=== PATIENT | female | born 1960 | race Caucasian/White ===

== ENCOUNTER 2016-12-03 09:02 | Emergency (ER) | payer MEDICARE, MEDICAID ==
[2016-12-03 09:10] VITALS: BP 111/65
--- NOTE | 2016-12-03 10:11 | UC ---
berna Alva Timothy, scribed for Mary Eason MD on 12/03/16 at 0957 . Skin Complaint HPI - HPI Summary HPI Summary: Cora Iqbal is a 56 yo female presenting to [facility] with erythematous, cicular, patchy rash on her legs and abdomen. Pt states first noted rash yesterday. Pt states approx 10 days ago was "being bit by something" when she was outside. Pt initially thought was a spider, but reports may have been a tick. PT staes since this time has had fatigue, nausea and exacerbation of her chronic migraine-type 3/10 PEREZ for the past 5 days. Pt denies abdominal pain but states in general does not feel well, has fatigue. Pt denies vision changes. No fevers, chills. No mylagia, arthralgia. No sick contact. She is concerned for lyme disease. Pt states she had lyme disease last summer, but her Sx today are much worse this time. She states she has been eating and drinking normally. Her MHx includes thyroid disease, migraine, schizophrenia, anxiety, substance abuse, necrotizing ulcerative gingivitis. Pt medication list reviewed this visit - History of Current Complaint Time Seen by Provider: 12/03/16 09:55 Stated Complaint: RASH Hx Obtained From: Patient Hx Last Menstrual Period: 02/15/15 Onset/Duration: Sudden Onset, Lasting Days, Still Present Skin Exposure Onset/Duration: Days Ago Timing: Constant Onset Severity: Moderate Current Severity: Moderate Pain Intensity: 3 Pain Scale Used: 0-10 Numeric Location: Diffuse Character: Redness Aggravating: Nothing Alleviating: Nothing Associated Signs & Symptoms: Positive: Abdominal Pain Related History: Insect Bite/Sting - Allergy/Home Medications Allergies/Adverse Reactions: Allergies Allergy/AdvReac Type Severity Reaction Status Date / Time Latex AdvReac GI Upset Verified 12/03/16 09:10 Review of Systems Constitutional: Negative Skin: Rash Eyes: Negative ENT: Negative Respiratory: Negative Cardiovascular: Negative Gastrointestinal: Abdominal Pain Genitourinary: Negative Motor: Negative Neurovascular: Negative Musculoskeletal: Negative Neurological: Headache Psychological: Negative All Other Systems Reviewed And Are Negative: Yes PMH/Surg Hx/FS Hx/Imm Hx Previously Healthy: Yes Endocrine History: Thyroid Disease Psychological History: Anxiety, Schizophrenia Other Psychological History: migraine Other History Of: Negative For: Anticoagulant Therapy - Surgical History Surgical History: Yes Surgery Procedure, Year, and Place: 2 fx nose. benign cyst left leg - Family History Known Family History: Positive: Hypertension, Other - thyroid disease Negative: Cardiac Disease, Diabetes - Social History Alcohol Use: Occasionally Substance Use Type: None Smoking Status (MU): Former Smoker Type: Cigarettes Have You Smoked in the Last Year: No When Did the Patient Quit Smoking/Using Tobacco: 10 YRS AGO - Immunization History Most Recent Influenza Vaccination: unknown Most Recent Tetanus Shot: unknown Most Recent Pneumonia Vaccination: unknown Physical Exam Triage Information Reviewed: Yes Appearance: Well-Appearing, No Pain Distress, Well-Nourished Vital Signs: Initial Vital Signs Temp 97.9 F 12/03/16 09:04 Pulse 106 12/03/16 09:04 Resp 18 12/03/16 09:04 BP 111/65 12/03/16 09:04 Pulse Ox 100 12/03/16 09:04 Vital Signs Reviewed: Yes Eye Exam: Normal Eyes: Positive: Conjunctiva Clear ENT Exam: Normal ENT: Positive: Hearing grossly normal, Pharynx normal, Nasal drainage, TMs normal Neck exam: Normal Neck: Positive: Supple, Nontender, No Lymphadenopathy Respiratory Exam: Normal Respiratory: Positive: Chest non-tender, Lungs clear, Normal breath sounds Cardiovascular Exam: Normal Cardiovascular: Positive: RRR, No Murmur, Pulses Normal Abdominal Exam: Normal Abdomen Description: Positive: Nontender, No Organomegaly, Soft Bowel Sounds: Positive: Present Musculoskeletal Exam: Normal Musculoskeletal: Positive: Strength Intact, ROM Intact Neurological: Positive: Alert, Muscle Tone Normal Psychological Exam: Normal Psychological: Positive: Normal Response To Family Skin Exam: Other - Pt with 3 areas of circular areas of erythema 3-4 cm in diameter with central clearing Not raised, slight warmth right mid calf - lateral aspect left lateral aspect knee Left mid femur anterior aspect. Pt with small puncture wound left, prox, posterior calf - no erythema, no fluctuance, no drainage, no induration Course/Dx - Course Course Of Treatment: Cora Iqbal is a 56 yo female presenting to [facility] with 2 days developing rash, 3/10 PEREZ , fatigue for the past week after being bitten by an unknown insect 1.5 weeks ago. Pt with 3 discrete, circular target lesions to LE. Pt non-toxic appearing and appropriate. will draw lyme. start Doxy. Recommend referral to Dr. Randolph. PCP f/u. return precautions discussed. Pt comfortable and in agreement with plan - Differential Diagnoses - Skin Complaint Differential Diagnoses: Tick Born Illness - Diagnoses Provider Diagnoses: rash. likely lyme Discharge - Discharge Plan Condition: Stable Disposition: HOME Prescriptions: DOXYcycline CAP(*) [DOXYcycline 100MG CAP(*)] 100 mg PO BID #20 cap Patient Education Materials: Lyme Disease (ED), Tick Bite (ED) Referrals: Won HERNANDEZ,Chris Ziegler [Medical Doctor] - 2 Days Real Huston MD [Primary Care Provider] - 2 Days Additional Instructions: The doctor that evaluated you today is concerned that you have Lyme's Disease. You have been prescribed doxycycline - medication used to treat Lyme's disease You have had blood drawn today to test for Lyme It is recommended you contact your doctor, Dr. Huston, and Dr. Randolph ( infectious disease) for follow-up and further treatment. Okay to take Tylenol as needed for discomfort. Okay to take other medications as previously prescribed. Return to urgent care or the emergency department with any questions or concerns including vomiting, fever, or vision problems, or any other concerns. The documentation as recorded by the berna gomez Timothy accurately reflects the service I personally performed and the decisions made by me, Mary Eason MD.
== END 2016-12-03 10:23 | disposition home or self-care (01) ==
LOC: UCEAST 09:02
DX: Z87.891 Personal history of nicotine dependence (principal); A69.20 Lyme disease, unspecified
CPT/HCPCS: 86617; 86618; 99212; G0463

== ENCOUNTER 2016-12-03 18:09 | Emergency (ER) | payer MEDICARE, MEDICAID ==
[2016-12-03 18:16] VITALS: BP 108/85
[2016-12-03] MEDS ORDERED: Ketorolac INJ* 30 MG/ML 1 ML VIAL IV ONE (19:58)
[2016-12-03] MEDS ORDERED: Ondansetron INJ* 2 MG/ML VIAL IV ONE (19:58)
[2016-12-03] MEDS ORDERED: NS 0.9% 1000 ML* 1,000 ML IV ONE (19:58)
--- NOTE | 2016-12-03 20:51 | RAD ---
Indication: Fever. Single frontal view of the chest performed at 2007 hours was reviewed. Comparison is made with previous exam dated February 03, 2006. No mediastinal shift is noted. Heart is of normal size and configuration. Lung caputo appear clear. IMPRESSION: NO ACTIVE CARDIOPULMONARY DISEASE IS NOTED.
[2016-12-03 21:45] LABS: Hematocrit 34 % (35-47); Hemoglobin 11.6 g/dl (12.0-16.0); Mean Corpuscular HGB Conc 34 g/dl (31-36); Mean Corpuscular Hemoglobin 29 pg (27-31); Mean Corpuscular Volume 86 fL (80-97); Mean Platelet Volume 8 um3 (7.4-10.4); Red Blood Count 3.97 10^6/ul (4.0-5.4); Red Cell Distribution Width 13 % (10.5-15); White Blood Count 9.4 10^3/ul (3.5-10.8)
[2016-12-03 21:56] LABS: Albumin 3.4 g/dL (3.2-5.2); BUN/Creatinine Ratio 7.2 (8-20); C Reactive Protein 53.75 mg/L (< 5.00); Calcium 8.8 mg/dL (8.6-10.3); EGFR African American 91.8 (>60); EGFR Non-African American 71.4 (>60); Globulin 3.4 g/dL (2-4); Potassium 3.5 mmol/L (3.5-5.0); Total Bilirubin 0.4 mg/dL (0.2-1.0); Total Protein 6.8 g/dL (6.4-8.9)
[2016-12-03 21:57] LABS: Troponin I 0.01 ng/mL (<0.04)
[2016-12-03] MEDS ORDERED: HYDROcodone/ACETAMIN 5-325 MG* 1 TAB PO ONE (22:30)
--- NOTE | 2016-12-03 22:30 | ED ---
Kathy Alva Auryana, scribed for Isela Abraham MD on 12/03/16 at 1910 . Headache - HPI Summary HPI Summary: 56 year old female present with fever (100.8) starting 1 day ago. Patient reports migraine (lasting days - now down to a small PEREZ), arthralgia, feeling "stingy feeling like zaps" underneath skin, and a pink rash with a ring. She believes she may have been bitten by a tick 1 week ago. She reports that her last episode of lyme disease was not like this. PMHx is significant for DDD, migraines, thyroid issues, Lyme disease (2016) and mental health issues. FHx is significant for migraines. SHx is significant for alcohol use but denies tobacco - History Of Current Complaint Chief Complaint: EDHeadache Stated Complaint: TICK BITE,RASH,FEVER/SENT FROM [facility] Time Seen by Provider: 12/03/16 19:02 Hx Obtained From: Patient Hx Last Menstrual Period: 02/15/15 Onset/Duration: Gradual Onset, Started days ago, Still Present Initially Headache Was: Severe Currently Pain Is: Moderate Timing: Constant Location of Headache: Diffuse Associated Signs And Symptoms: Fever, Other (Noted In Comments) - "stinging like zaps", arthralgia, rash Related History: Similar Episode/DX As: - SEE HPI - Allergies/Home Medications Allergies/Adverse Reactions: Allergies Allergy/AdvReac Type Severity Reaction Status Date / Time Latex AdvReac GI Upset Verified 12/03/16 09:10 PMH/Surg Hx/FS Hx/Imm Hx Endocrine/Hematology History: Reports: Hx Thyroid Disease Denies: Hx Anticoagulant Therapy, Hx Blood Disorders, Hx Blood Transfusions, Hx Bone Marrow Disease, Hx Diabetes, Hx Systemic Lupus Erythematosus, Hx Sickle Cell Disease, Hx Anemia, Hx Unexplained Bleeding, Other Endocrine/Hematological Disorders Cardiovascular History: Denies: Hx Hypertension, Hx Pacemaker/ICD Respiratory History: Denies: Hx Asthma, Hx Chronic Obstructive Pulmonary Disease (COPD) GI History: Denies: Hx Ulcer Sensory History: Reports: Hx Contacts or Glasses Denies: Hx Cataracts, Hx Eye Injury, Hx Eye Prosthesis, Hx Glaucoma, Hx Legally Blind, Hx Macular Degeneration, Hx Vision Problem, Hx Deafness, Hx Hearing Aid, Hx Hearing Problem, Other Sensory Impairments Opthamlomology History: Reports: Hx Contacts or Glasses Denies: Hx Cataracts, Hx Eye Injury, Hx Eye Prosthesis, Hx Glaucoma, Hx Legally Blind, Hx Macular Degeneration, Hx Vision Problem, Other Sensory Impairments Neurological History: Reports: Hx Migraine Denies: Hx Dementia, Hx Developmental Delay, Hx Headaches, Hx Nerve Disease, Hx Seizures, Hx Spinal Cord Injury, Hx Transient Ischemic Attacks (TIA), Other Neuro Impairments/Disorders Psychiatric History: Reports: Hx Anxiety, Hx Inpatient Treatment - Not in 11 years, Hx Community Mental Health Tx - [place] therapist and vol[place] [facility] [place], Hx Schizophrenia, Hx Substance Abuse - Recent episodes of excessive drinking Denies: Hx Attention Deficit Hyperactivity Disorder, Hx Eating Disorder, Hx Depression, Hx Panic Disorder, Hx Post Traumatic Stress Disorder, Hx Bipolar Disorder, Hx Suicide Attempt, Hx of Violent Episodes Against Others, Other Psychiatric Issues/Disorders - Cancer History Hx Chemotherapy: No Hx Radiation Therapy: No - Surgical History Surgery Procedure, Year, and Place: 2 fx nose. benign cyst left leg Infectious Disease History: No Infectious Disease History: Denies: Hx Hepatitis, Hx Human Immunodeficiency Virus (HIV), Hx of Known/ Suspected MRSA, Hx Shingles, Hx Tuberculosis, Hx Known/Suspected VRE, Hx Known/ Suspected VRSA, History Other Infectious Disease, Traveled Outside the [place] in Last 30 Days - Family History Known Family History: Positive: Unknown, Hypertension, Other - thyroid disease Negative: Cardiac Disease, Diabetes - Social History Occupation: Disabled Lives: Alone - WITH FEMALE FRIEND Alcohol Use: Occasionally Hx Substance Use: No Substance Use Type: Reports: None Smoking Status (MU): Former Smoker Type: Cigarettes Have You Smoked in the Last Year: No Review of Systems Positive: Fever Eyes: Negative ENT: Negative Cardiovascular: Negative Respiratory: Negative Gastrointestinal: Negative Genitourinary: Negative Positive: Arthralgia Positive: Rash Neurological: Other - "stinging like zaps" Positive: Headache Psychological: Normal All Other Systems Reviewed And Are Negative: Yes Physical Exam - Summary Physical Exam Summary: General: Well appearing, no pain distress Skin: Warm, Skin Color Reflects Adequate Perfusion, Dry. Blanching erythematus like plaques - 1 on leg and 2 on trunk - patches that don't look like cellulitis. No true target lesions. Eyes: EOMI, MISA ENT: Pharynx normal, TMs normal Neck: Supple, nontender Respiratory: CTA, breath sounds present, no rhonchi, no wheezes, no rales Cardiovascular: RRR, no murmur, no rub, no gallop Abdomen: Soft, nontender, Non-distended, no guarding, no rebound Bowel: Present Musculoskeletal: CASE, No edema Neuro: Sensory/motor intact, A&Ox3, CN intact 2-12 Psych: Affect/mood appropriate Triage Information Reviewed: Yes Vital Signs On Initial Exam: Initial Vitals Temp Pulse Resp BP Pulse Ox 98.8 F 110 20 108/85 98 12/03/16 18:14 12/03/16 18:14 12/03/16 18:14 12/03/16 18:14 12/03/16 18:14 Vital Signs Reviewed: Yes Diagnostics - Vital Signs Vital Signs Temp Pulse Resp BP Pulse Ox 12/03/16 18:14 98.8 F 110 20 108/85 98 - Laboratory Lab Results: Lab Results 12/03/16 12/03/16 12/03/16 Range/Units 21:30 21:30 21:30 WBC 9.4 (3.5-10.8) 10^3/ul RBC 3.97 L (4.0-5.4) 10^6/ul Hgb 11.6 L (12.0-16.0) g/dl Hct 34 L (35-47) % MCV 86 (80-97) fL MCH 29 (27-31) pg MCHC 34 (31-36) g/dl RDW 13 (10.5-15) % Plt Count 227 (150-450) 10^3/ul MPV 8 (7.4-10.4) um3 Neut % (Auto) 88.8 H (38-83) % Lymph % (Auto) 6.0 L (25-47) % Grainger % (Auto) 4.0 (1-9) % Eos % (Auto) 0.6 (0-6) % Baso % (Auto) 0.6 (0-2) % Absolute Neuts (auto) 8.3 H (1.5-7.7) 10^3/ul Absolute Lymphs (auto) 0.6 L (1.0-4.8) 10^3/ul Absolute Monos (auto) 0.4 (0-0.8) 10^3/ul Absolute Eos (auto) 0.1 (0-0.6) 10^3/ul Absolute Basos (auto) 0.1 (0-0.2) 10^3/ul Absolute Nucleated RBC 0 10^3/ul Nucleated RBC % 0 INR (Anticoag Therapy) 0.91 (0.89-1.11) Sodium 136 (133-145) mmol/L Potassium 3.5 (3.5-5.0) mmol/L Chloride 103 (101-111) mmol/L Carbon Dioxide 27 (22-32) mmol/L Anion Gap 6 (2-11) mmol/L BUN 6 (6-24) mg/dL Creatinine 0.83 (0.51-0.95) mg/dL Est GFR ( Amer) 91.8 (>60) Est GFR (Non-Af Amer) 71.4 (>60) BUN/Creatinine Ratio 7.2 L (8-20) Glucose 170 H (70-100) mg/dL Lactic Acid (0.5-2.0) mmol/L Calcium 8.8 (8.6-10.3) mg/dL Total Bilirubin 0.40 (0.2-1.0) mg/dL AST 102 H (13-39) U/L ALT 148 H (7-52) U/L Alkaline Phosphatase 139 H (34-104) U/L Troponin I 0.01 (<0.04) ng/mL C-Reactive Protein 53.75 H (< 5.00) mg/L Total Protein 6.8 (6.4-8.9) g/dL Albumin 3.4 (3.2-5.2) g/dL Globulin 3.4 (2-4) g/dL Albumin/Globulin Ratio 1.0 (1-3) 12/03/16 Range/Units 21:30 WBC (3.5-10.8) 10^3/ul RBC (4.0-5.4) 10^6/ul Hgb (12.0-16.0) g/dl Hct (35-47) % MCV (80-97) fL MCH (27-31) pg MCHC (31-36) g/dl RDW (10.5-15) % Plt Count (150-450) 10^3/ul MPV (7.4-10.4) um3 Neut % (Auto) (38-83) % Lymph % (Auto) (25-47) % Grainger % (Auto) (1-9) % Eos % (Auto) (0-6) % Baso % (Auto) (0-2) % Absolute Neuts (auto) (1.5-7.7) 10^3/ul Absolute Lymphs (auto) (1.0-4.8) 10^3/ul Absolute Monos (auto) (0-0.8) 10^3/ul Absolute Eos (auto) (0-0.6) 10^3/ul Absolute Basos (auto) (0-0.2) 10^3/ul Absolute Nucleated RBC 10^3/ul Nucleated RBC % INR (Anticoag Therapy) (0.89-1.11) Sodium (133-145) mmol/L Potassium (3.5-5.0) mmol/L Chloride (101-111) mmol/L Carbon Dioxide (22-32) mmol/L Anion Gap (2-11) mmol/L BUN (6-24) mg/dL Creatinine (0.51-0.95) mg/dL Est GFR ( Amer) (>60) Est GFR (Non-Af Amer) (>60) BUN/Creatinine Ratio (8-20) Glucose (70-100) mg/dL Lactic Acid 0.7 (0.5-2.0) mmol/L Calcium (8.6-10.3) mg/dL Total Bilirubin (0.2-1.0) mg/dL AST (13-39) U/L ALT (7-52) U/L Alkaline Phosphatase (34-104) U/L Troponin I (<0.04) ng/mL C-Reactive Protein (< 5.00) mg/L Total Protein (6.4-8.9) g/dL Albumin (3.2-5.2) g/dL Globulin (2-4) g/dL Albumin/Globulin Ratio (1-3) Result Diagrams: 12/03/16 21:30 12/03/16 21:30 Lab Statement: Any lab studies that have been ordered have been reviewed, and results considered in the medical decision making process. - Radiology CXR Xray Interpretation: No Acute Changes Radiology Interpretation Completed By: Radiologist Headache Course/Dx - Course Course Of Treatment: 56 yo female with target lesions seen earlier today by Dr. Eason with dx of lyme back today with body aches her labs are remarkable only for liver enzyme elevation that appears to be new she is well appearing, a hepatitis panel has been added on. Pt is safe for discharge. - Diagnoses Provider Diagnoses: Lyme disease, Liver enzyme elevation Discharge - Discharge Plan Condition: Stable Disposition: HOME The documentation as recorded by the Kathy gomez Auryana accurately reflects the service I personally performed and the decisions made by me, sIela Abraham MD.
== END 2016-12-03 22:47 | disposition home or self-care (01) ==
LOC: ED 18:09
DX: A69.20 Lyme disease, unspecified (principal); R94.5 Abnormal results of liver function studies; Z87.891 Personal history of nicotine dependence
CPT/HCPCS: 36415; 71010; 80053; 80074; 83605; 84484; 85025; 85610; 86140; 87040; 96360; 96374; 96375; 99282; J1885; J2405

== ENCOUNTER 2017-07-08 10:52 | Day surgery (SDC) | payer MEDICARE, MEDICAID ==
[~2017-07-08 10:52] MED LIST: Acetaminophen TAB* 325 MG PO PRN; Buffered Lidocaine 0.9% SYRIN* 5 ML/SYR SYRINGE INTRADERM ONE
[2017-07-08] MEDS ORDERED: Neomycin/Polymy/Dex OPHTH.OIN* 3.5 GM ONE (11:14)
[2017-07-08] MEDS ORDERED: Lidocaine 1% MPF* 2 ML VIAL ONE (11:14)
[2017-07-08] MEDS ORDERED: Tropicamide 1% OPTH.SOL* BTL ONE (11:14)
[2017-07-08] MEDS ORDERED: Phenylephrine 2.5% OPTH.SOL* 2 ML BTL ONE (11:14)
[2017-07-08] MEDS ORDERED: Cyclopentolate 1% OPTH.SOL* 2 ML BTL ONE (11:14)
[2017-07-08] MEDS ORDERED: Ketorolac 0.5% OPHTH (NF) 0.5 % 5 ML BTL ONE (11:14)
[2017-07-08] MEDS ORDERED: Tetracaine 0.5% OPTH.SOL 4 ML* 1 DROP BTL ONE (11:14)
[2017-07-08] MEDS ORDERED: Midazolam* 1 MG/ML 2 ML VIAL (2 MG) ONE (11:29)
[2017-07-08] MEDS ORDERED: fentaNYL* 50 MCG/ML 2 ML VIAL (100 MCG VIAL) ONE (11:29)
[2017-07-08 12:55] VITALS: BP 97/60
--- NOTE | 2017-07-08 23:33 | OP ---
DATE OF OPERATION: 07/08/17 - [facility] DATE OF : 62 SURGEON: Dr. Heraclio Geiger. RUG RENOVATOR: None. ANESTHESIA: Topical with intravenous sedation. PRE-OP DIAGNOSIS: Cataract, right eye. POST-OP DIAGNOSIS: Cataract, right eye. OPERATIVE PROCEDURE: Phacoemulsification and cataract extraction with posterior chamber Toric intraocular lens implant, right eye. COMPLICATIONS: None. BLOOD LOSS: None. DESCRIPTION OF PROCEDURE: The patient was seen preoperatively in the holding area where she was placed in an upright position. A eddie was made at the 6 o' clock position of the limbus of the right eye. The patient was subsequently brought to the operating room and received a small amount of intravenous sedation and a drop of Tetracaine in the right eye. The patient was prepped and draped in the usual sterile fashion for ophthalmic surgery and attention was directed to the right eye where a speculum was placed. A paracentesis was created at the 11 o'clock position and 0.1 cc of 1% preservative-free Lidocaine was injected into the anterior chamber followed by DisCoVisc. The eye was digitally stabilized while a 2.75 mm keratome was used to create a triplanar clear corneal incision at the 9 o'clock position. A continuous curvilinear capsulorrhexis was created with the cystotome and Utrata forceps. BSS on a cannula was used to hydrodissect the lens from the capsule. Phacoemulsification was performed in a [id number] technique to create 4 fragments, which were removed. Residual cortical material was removed with irrigation and aspiration. Healon was used to inflate the capsular bag. A Nathan marker and marking pen were used to eddie the 13-degree access at the limbus. An SN6AT3 21.5 Diopter lens was folded and inserted into the capsular bag. It was dialed to the appropriate axial alignment with the Sinskey hook. The Sinskey hook remained in the eye through the paracentesis to stabilize the lens while irrigation and aspiration was performed to remove viscoelastic from the eye. The Sinskey hook was removed. BSS on a cannula was used to hydrate the corneal stroma and seal the wound. At the end of the case, the pupil was round. The lens was centered stable and axially aligned. The eye pressure appeared normal and the wound was water tight. The speculum was removed and topical Maxitrol ointment was placed on the surface of the eye. Eye was closed, patched, and shielded and the patient was discharged to the recovery room in stable condition with postop instructions and followup appointment given. [id number]/[facility] #: [id number] MTDD
== END 2017-07-08 13:08 | disposition home or self-care (01) ==
LOC: OREAST 10:52
PROVIDERS: ATTEND Ophthalmology
DX: H25.041 Posterior subcapsular polar age-related cataract, right eye (principal); E03.9 Hypothyroidism, unspecified; F20.89 Other schizophrenia; K21.9 Gastro-esophageal reflux disease without esophagitis; Z87.891 Personal history of nicotine dependence
CPT/HCPCS: A9270-GY; J2250; J3010; V2787

== ENCOUNTER 2017-07-15 10:23 | Day surgery (SDC) | payer MEDICARE, MEDICAID ==
[~2017-07-15 10:23] MED LIST changes: -Buffered Lidocaine 0.9% SYRIN* 5 ML/SYR SYRINGE INTRADERM ONE; +Cyclopentolate 1% OPTH.SOL* 2 ML BTL ONE; +Ketorolac 0.5% OPHTH (NF) 0.5 % 5 ML BTL ONE; +Lidocaine 1% MPF* 2 ML VIAL ONE; +Neomycin/Polymy/Dex OPHTH.OIN* 3.5 GM ONE; +Phenylephrine 2.5% OPTH.SOL* 2 ML BTL ONE; +Tetracaine 0.5% OPTH.SOL 4 ML* 1 DROP BTL ONE; +Tropicamide 1% OPTH.SOL* BTL ONE
[2017-07-15] MEDS ORDERED: Phenylephrine 2.5% OPTH.SOL* 2 ML BTL ONE (12:19)
[2017-07-15] MEDS ORDERED: Neomycin/Polymy/Dex OPHTH.OIN* 3.5 GM ONE (12:19)
[2017-07-15] MEDS ORDERED: Lidocaine 1% MPF* 2 ML VIAL ONE (12:19)
[2017-07-15] MEDS ORDERED: Tropicamide 1% OPTH.SOL* BTL ONE (12:19)
[2017-07-15] MEDS ORDERED: Tetracaine 0.5% OPTH.SOL 4 ML* 1 DROP BTL ONE (12:19)
[2017-07-15] MEDS ORDERED: Cyclopentolate 1% OPTH.SOL* 2 ML BTL ONE (12:19)
[2017-07-15] MEDS ORDERED: Ketorolac 0.5% OPHTH (NF) 0.5 % 5 ML BTL ONE (12:19)
[2017-07-15] MEDS ORDERED: fentaNYL* 50 MCG/ML 2 ML VIAL (100 MCG VIAL) ONE (12:23)
[2017-07-15] MEDS ORDERED: Midazolam* 1 MG/ML 2 ML VIAL (2 MG) ONE (12:24)
[2017-07-15 13:37] VITALS: BP 103/92
--- NOTE | 2017-07-16 12:39 | OP ---
DATE OF OPERATION: 07/15/17 - [facility] DATE OF : 62 SURGEON: Heraclio Geiger MD PRE-OP DIAGNOSIS: Cataract with astigmatism, left eye. POST-OP DIAGNOSIS: Cataract with astigmatism, left eye. OPERATIVE PROCEDURE: Phacoemulsification, cataract extraction with posterior chamber intraocular lens implant, left eye (toric lens). DESCRIPTION OF PROCEDURE: The patient was seen preoperatively in the holding area and she was placed in an upright position. A eddie was made at the 6 o' clock position on the limbus of the left eye with a marking pen. The patient was subsequently brought to the operating room and given a small amount of intravenous sedation. A drop of tetracaine was given to the left eye. She was prepped and draped in the usual sterile fashion for ophthalmic surgery and attention was directed to the left eye where a speculum was placed. A paracentesis was created at the 5 o'clock position. 0.1 cc of 1% preservative- free lidocaine was injected into the anterior chamber followed by DisCoVisc. The eye was digitally stabilized while a 2.75 mm keratome was used to create a triplanar clear corneal incision at the 3 o'clock position. A continuous curvilinear capsulorrhexis was created with a cystotome and Utrata forceps. BSS on a cannula was used to hydrodissect the lens from the capsule. Phacoemulsification was performed in a [id number] technique to create 4 fragments which were removed. Residual cortical material was removed with irrigation and aspiration. Healon was used to inflate the capsular bag. A Nathan marker and marking pen were used to eddie the 176 degree axis. An SN6AT4 20.0 Diopter lens was folded and inserted into the capsular bag. It was dialed to the appropriate axial alignment with a Sinskey hook. The lens was held in position using the Sinskey hook through the paracentesis while irrigation and aspiration was performed to remove viscoelastic from the eye. The Sinskey hook was removed. BSS on a cannula were used to hydrate the corneal stroma and seal the wound. At the end of the case, the pupil was round. The lens was centered , stable and axillary aligned. The eye pressure appeared normal and the wound was water tight. The speculum was removed and topical Maxitrol ointment was placed on the surface of the eye. The eye was closed, patched, and shielded, and the patient was sent to recovery room in stable condition. [id number]/[facility] #: [id number] NICK
== END 2017-07-15 13:51 | disposition home or self-care (01) ==
LOC: OREAST 10:23
PROVIDERS: ATTEND Ophthalmology
DX: H25.12 Age-related nuclear cataract, left eye (principal); H52.202 Unspecified astigmatism, left eye; I10 Essential (primary) hypertension; Z87.891 Personal history of nicotine dependence; E03.9 Hypothyroidism, unspecified; F41.8 Other specified anxiety disorders; D64.9 Anemia, unspecified; F20.9 Schizophrenia, unspecified
CPT/HCPCS: A9270-GY; J2250; J3010; V2787

== ENCOUNTER 2017-11-23 12:51 | Emergency (ER) | payer MEDICARE, MEDICAID ==
--- OUTSIDE RECORDS SUMMARY | 2017-11-23 13:00 | XMS REPORT ---
:1960 External Reference #:[id number] Author Organization [facility] Address [address] [place] [address] Phone [phone] Care Team Providers Name Role Phone Real Huston MD Primary Care Physician Unavailable Payers Type Date Identification Numbers Payment Provider Subscriber Medicare Primary Effective: Policy Number: Medicare Cora Iqbal 1991 [id number] PayID: [id number] [address] [place] [address] Medigap Part B Policy Number: [id number] Medicaid Cora Iqbal PayID: [id number] [address] [place] [address] Problems Date Description Provider Status Onset: 05/31/2016 Chronic back pain Real Huston M.D.,FACP Active Onset: 05/31/2016 Menstrual migraine Real Huston M.D.,FACP Active Onset: 05/31/2016 Hypothyroidism Real Huston M.D.,FACP Active Onset: 05/31/2016 Simple schizophrenia Real Huston M.D.,FACP Active Note: w/ auditory hallucination Onset: 04/18/2017 Gastroesophageal reflux disease Real Huston M.D., FACP Active Family History Date Family Member(s) Problem(s) Comments Mother Colon Cancer [facility], living age 87 Children 3 2 alive Siblings 3 Social History Type Date Description Comments Marital Status Single Lives With Alone 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 Cigarette Use Never Smoked Cigarettes ETOH Use 06/05/2016 Consumes 3 glasses of wine per day Smoking Patient has never smoked Recreational Drug Use Denies Drug Use Daily Caffeine Consumes on average 4 cups of regular coffee per day Currently Active Patient is currently not sexually active General Hx Text 3 kids Allergies, Adverse Reactions, Alerts Date Description Reaction Status Severity Comments 08/24/2013 NKDA active Medications Medication Date Status Form Strength Qnty SIG Indications Ordering Provider Climara Pro 11/12/ Active Patches 0.045-0.0 4unit topical Real 2017 Weekly 15mg/Day s weekly Karlie Huston M.D.,FACP Senokot 04/18/ Active Tablets 8.6mg 120ta Real 2016 bs Karlie Huston M.D.,FACP Hydrocodone-Aceta 04/18/ Active Tablets 5-325mg 45tab 1 by Real minophen 2016 s mouth Karlie Huston, every 4-6 M.D.,FACP hours prn. Tab-A-Adryan 02/24/ Active Tablets 90tab take 1 Real Escobedo s tablet by Karlie Huston, mouth M.D.,FACP once daily Multivitamin 11/21/ Active Tablets 90tab 1 by Real Adult 2017 s mouth Karlie Huston, every day M.D.,FACP Vitamin B-2 10/16/ Active Tablets 100mg 4 tab Real Escobedo daily Karlie Huston M.D.,FACP Pantoprazole 07/05/ Active Tablets DR 20mg 30tab 1 by Real Sodium 2017 s mouth Karlie Huston, every day M.D.,FACP for 2 weeks then prn Verapamil HCL ER 07/05/ Active Caps ER 100mg 30cap 1 by Angela 2016 24HR s mouth Huertas, every LOAN ASSISTANT night at bedtime Cyclobenzaprine 06/24/ Active Tablets 10mg 90tab take 1 Angela HCL 2016 s tablet Huertas, three LOAN ASSISTANT times a day as needed Levothyroxine 06/20/ Active Tablets 100mcg 30tab 1 by Real Sodium 2017 s mouth Karlie Huston, every day M.D.,FACP Fluticasone 05/31/ Active Suspension 50mcg/Act 9.900 2 sprays [place] Jane Propionate 2016 ml each Karlie Huston, nostril M.D.,FACP daily as needed Tramadol HCL 12/30/ Active Tablets 50mg 100ta 1-2 Real 2015 bs tablets Karlie Huston, every 6 M.D.,FACP hours as needed Hydroxyzine HCL 05/31/ Active Tablets 25mg 45tab 2 tab at Real 2015 s bedtime Karlie Huston M.D.,FACP Gabapentin 05/31/ Active Tablets 800mg 120ta 1 by Real 2015 bs mouth two Karlie Huston, times a M.D.,FACP day Magnesium Oxide 05/31/ Active Capsules 400mg 30cap by mouth Real 2015 s every day Karlie Huston M.D.,FACP Zolmitriptan 05/31/ Active Tablets 5mg 9tabs 1 by Angela 2015 Dispers mouth Huertas, every 2 LOAN ASSISTANT hours mdd2 as needed migraine( 9 tablets a month) mdd 2 Ibuprofen 05/31/ Active Tablets 800mg 45tab 1 by Real 2015 s mouth Karlie Huston, q6-8 M.D.,FACP hours as needed cramps Vraylar / Active Capsules 4.5mg 1 po qd Unknown 0000 Butalbital/Acetam / Active Capsules 50-325-40 30cap 1-2 caps John Villanueva inophen/Caffeine 0000 mg s by mouth Karlie Huston, every 4 M.D.,FACP hours as needed for migraine, max 2 days/wk, 2 wks a month Alprazolam / Active Tablets 0.25mg one by Unknown 0000 mouth up to three times daily as needed for anxiety Vitamin B-12 / Active Tablets 500mcg 1 by Unknown 0000 mouth every day Doxycycline 03/25/ Hx Tablets 100mg 42tab 1 by Real Peres 2016 - s mouth Karlie Huston, 04/15/ twice a M.D.,FACP 2016 day for 3 wks Doxycycline 03/04/ Hx Tablets 100mg 2tabs 2 tabs by Real Peres 2017 - mouth Karlie Huston, 03/06/ M.D.,FACP 2017 Doxycycline 12/03/ Hx Capsules 100mg [facility]cap [facility] Ordering 12/16/ twice Provider 2017 daily for 10 days. Lidoderm 07/20/ Hx Patches 5% 30uni apply one Tyler 2017 - ts patch 12 Marian, 11/17/ hours on M.D. 2016 and 12 hours off Codeine Sulfate 07/05/ Hx Tablets 15mg 30tab 1 by Real 2017 - s mouth Karlie Huston, 04/18/ four M.D.,[facility] 2017 times a day as needed up to 4 days a week, up to 2 weeks/fri Levothyroxine 06/20/ Hx Solution 100mcg 1 by Real Sodium 2016 - Rec mouth DGiovanni Huston, 06/20/ every day M.D.,[facility] 2016 Orphenadrine 06/04/ Hx Tablets ER 100mg 14tab 1 by Real Citrate ER 2016 - 12HR s mouth Karlie Huston, 06/24/ twice a M.D.,[facility] 2016 day as needed Fiorinal/Codeine 05/31/ Hx Capsules 50-325-40 16cap 1 cap by Real #3 2015 - -30mg s mouth DGiovanni Huston, 07/05/ three a M.D.,[facility] 2016 day as needed for migraines , maximum 2d/week (max ) Rizatriptan 05/31/ Hx Tablets 10mg 14tab 1 by Real Benzoate 2015 - Dispers s mouth DGiovanni Huston, 05/31/ twice a M.D.,[facility] 2015 day as needed headache max 2 days a week Clonazepam 05/31/ Hx Tablets 0.5mg 30tab 1 by Real 2015 - s mouth Karlie Huston, 10/16/ daily for M.D.,[facility] 2016 anxiety as needed Riboflavin 05/31/ Hx Capsules 100mg 120ca 4 every Real 2015 - ps day DGiovanni Huston, 10/16/ M.D.,[facility] 2016 Metaxalone 05/31/ Hx Tablets 800mg 30tab 1/2 -1 by Real 2015 - s mouth Karlie Huston, 06/04/ three M.D.,[facility] 2016 times a day as needed Levothyroxine / Hx Tablets 75mcg 90tab 1 by Unknown Sodium 0000 - s mouth 05/31/ every day 2015 Perphenazine / Hx Tablets 16mg 1 tab po Unknown 0000 - daily 2015 Benztropine / Hx Tablets 0.5mg 1 tab po Unknown Mesylate 0000 - daily 2015 Multivitamin With 00/ Hx 1 by Real Kruger 0000 - mouth Karlie Huston, 11/21/ daily Gregory,[facility] 2017 Magnesium 00/ Hx 100mg 1 po Unknown 0000 - daily 2015 Vitamin B-12 /00/ Hx daily Unknown Complex 0000 - 2016 Miralax / Hx Packet [id number] 1mon 17 gm Unknown 0000 - every day 04/18/ as needed 2017 Docusate Sodium / Hx Capsules 100mg 60cap 1 by Unknown 0000 - s mouth prn 2016 Levothyroxine / Hx Tablets 88mcg Unknown Sodium - 2016 Medications Administered in Office Medication Date Status Form Strength Qnty SIG Indications Ordering Provider PPD Administered Injection [facility] Administered Injection Unknown ecified 999 Immunizations CPT Code Status Date Vaccine Lot # [id number] Given 04/10/2017 Influenza Virus Vaccine, Quadrivalent, Split, Preservative Free [id number] Given 05/01/2012 Zoster (Zostavax) 16751 Given 07/12/2011 Tdap - Tetanus/Diptheria/Acellular Pertussis 52187 Given 01/11/1998 Measles Mumps And Rubella MMR Vital Signs Date Vital Result Comment 11/12/2017 Height 68 inches 5'8" Weight 159.00 lb Heart Rate 105 /min BP Systolic Sitting 108 mmHg BP Diastolic Sitting 60 mmHg Body Temperature 98.4 F O2 % BldC Oximetry 98 % BMI (Body Mass Index) 24.2 kg/m2 08/11/2017 Height 68 inches 5'8" Weight 158.00 lb Heart Rate 88 /min BP Systolic 122 mmHg BP Diastolic 62 mmHg Respiratory Rate 16 /min Body Temperature 98.0 F Pain Level 4 BMI (Body Mass Index) 24.0 kg/m2 07/28/2017 Weight 154.00 lb Heart Rate 93 /min BP Systolic 123 mmHg BP Diastolic 66 mmHg Body Temperature 97.1 F O2 % BldC Oximetry 98 % 07/14/2017 Weight 157.00 lb Heart Rate 101 /min BP Systolic Sitting 124 mmHg BP Diastolic Sitting 66 mmHg Body Temperature 97.4 F O2 % BldC Oximetry 98 % 06/19/2017 Weight 157.00 lb Heart Rate 94 /min BP Systolic Sitting 109 mmHg BP Diastolic Sitting 78 mmHg Body Temperature 97.4 F O2 % BldC Oximetry 98 % 04/18/2017 Height 67.5 inches 5'7.50" Weight 154.00 lb Heart Rate 90 /min BP Systolic Sitting 106 mmHg BP Diastolic Sitting 74 mmHg Respiratory Rate 14 /min Pain Level 0 BMI (Body Mass Index) 23.8 kg/m2 12/18/2016 Weight 150.00 lb with shoes Heart Rate 105 /min BP Systolic 110 mmHg BP Diastolic 76 mmHg O2 % BldC Oximetry 98 % 11/21/2016 Weight 146.50 lb Heart Rate 110 /min BP Systolic Sitting 110 mmHg BP Diastolic Sitting 74 mmHg Body Temperature 98.4 F O2 % BldC Oximetry 98 % 10/16/2016 Weight 146.00 lb Heart Rate 105 /min BP Systolic 118 mmHg BP Diastolic 62 mmHg Body Temperature 96.8 F O2 % BldC Oximetry 98 % 08/06/2016 Weight 152.00 lb Heart Rate 98 /min BP Systolic Sitting 118 mmHg BP Diastolic Sitting 78 mmHg Body Temperature 97.9 F O2 % BldC Oximetry 99 % 07/17/2016 Height 67.50 inches 5'7.50" Weight 159.50 lb Heart Rate 94 /min BP Systolic Sitting 100 mmHg BP Diastolic Sitting 72 mmHg Body Temperature 97.1 F O2 % BldC Oximetry 98 % BMI (Body Mass Index) 24.6 kg/m2 07/05/2016 Weight 158.50 lb Heart Rate 116 /min BP Systolic Sitting 116 mmHg BP Diastolic Sitting 70 mmHg Body Temperature 98.4 F O2 % BldC Oximetry 99 % 05/31/2016 Height 67.50 inches 5'7.50" Weight 156.50 lb Heart Rate 87 /min BP Systolic Sitting 108 mmHg BP Diastolic Sitting 62 mmHg Body Temperature 96.9 F O2 % BldC Oximetry 99 % BMI (Body Mass Index) 24.1 kg/m2 08/24/2013 Heart Rate 76 /min BP Systolic Sitting 100 mmHg BP Diastolic Sitting 64 mmHg Respiratory Rate 16 /min Results Test Date Test Result H/L Range Note Laboratory test 09/02/2017 TSH (Thyroid Stim 0.88 mcIU/mL 0.34-5.60 1, 2 finding Horm) Lipid Profile 09/02/2017 Triglycerides 49 mg/dL 1, 3 (Trig/Chol/HDL) Cholesterol 199 mg/dL 1, 4 HDL Cholesterol 82.0 mg/dL 1, 5 LDL Cholesterol 107 mg/dL 1, 6 Laboratory test finding 09/02/2017 Glucose 98 mg/dL 70-100 1, 7 CBC Auto Diff 07/14/2017 White Blood Count 4.8 10^3/uL 3.5-10.8 Red Blood Count 4.08 10^6/uL 4.0-5.4 Hemoglobin 11.7 g/dL Low 12.0-16.0 Hematocrit 35 % 35-47 Mean Corpuscular Volume 86 fL 80-97 Mean Corpuscular Hemoglobin 29 pg 27-31 Mean Corpuscular HGB Conc 33 g/dL 31-36 Red Cell Distribution Width 14 % 10.5-15 Platelet Count 216 10^3/uL 150-450 Mean Platelet Volume 7 um3 Low 7.4-10.4 Abs Neutrophils 2.9 10^3/uL 1.5-7.7 Abs Lymphocytes 1.4 10^3/uL 1.0-4.8 Abs Monocytes 0.3 10^3/uL 0-0.8 Abs Eosinophils 0.1 10^3/uL 0-0.6 Abs Basophils 0.1 10^3/uL 0-0.2 Abs Nucleated RBC 0 10^3/uL Granulocyte % 61.0 % 38-83 Lymphocyte % 28.7 % 25-47 Monocyte % 7.3 % 1-9 Eosinophil % 1.6 % 0-6 Basophil % 1.4 % 0-2 Nucleated Red Blood Cells % 0.1 Laboratory test finding 07/14/2017 Partial Thrombo Time 31.0 seconds 26.0 -36.3 PTT Inr/Protime 07/14/2017 Inr 0.78 0.77-1.02 Laboratory test finding 03/20/2017 Lyme Disease Serology Positive Negative 8 Lyme Western Blot 03/20/2017 Lyme Disease IgG Ab WB Positive Negative Lyme Disease IgG Bands Present See Comment kDa 9 Lyme Disease IgM Ab WB Positive Negative Lyme Disease IgM Bands Present p41, p39, p23, kDa Lyme Disease Interpretation See Comment 10 Liver Function Panel 01/09/2017 Total Protein 6.6 g/dL 6.4-8.9 Albumin 3.8 g/dL 3.2-5.2 Globulin 2.8 g/dL 2-4 Albumin/Globulin Ratio 1.4 1-3 Total Bilirubin 0.30 mg/dL 0.2-1.0 Direct Bilirubin 0.10 mg/dL 0.03-0.18 Indirect Bilirubin 0.2 mg/dL Low 0.3-1.0 Alkaline Phosphatase 45 U/L 34-104 Alt 13 U/L 7-52 Ast 17 U/L 13-39 Liver Function Panel 12/19/2016 Total Protein 6.2 g/dL Low 6.4-8.9 Albumin 3.5 g/dL 3.2-5.2 Globulin 2.7 g/dL 2-4 Albumin/Globulin Ratio 1.3 1-3 Total Bilirubin 0.50 mg/dL 0.2-1.0 Direct Bilirubin 0.10 mg/dL 0.03-0.18 Indirect Bilirubin 0.4 mg/dL 0.3-1.0 Alkaline Phosphatase 63 U/L 34-104 Alt 17 U/L 7-52 Ast 18 U/L 13-39 CMV Igg/Igm 12/19/2016 Cytomegalovirus IgG Antibody Negative Negative 11 Cytomegalovirus IgM Antibody Negative Negative Rad [facility] Comprehensive 12/19/2016 Ebv Capsid Ag IgG Ab Positive Negative Ebv Capsid Ag IgM Ab Negative Negative Rad-[facility] Nuclear Antigen Positive Negative Rad-[facility] Virus Interp See Comment 12 Lyme Western Blot 12/03/2016 Lyme Disease IgG Ab WB Positive Negative Lyme Disease IgG Bands Present See Comment kDa 13 Lyme Disease IgM Ab WB Negative Negative Lyme Disease IgM Bands Present No bands detecte <SEE NOTE> kDa 14 Lyme Disease Interpretation See Comment 15 Laboratory test 12/03/2016 Lyme Disease Positive Negative 16 finding Serology Laboratory test 12/03/2016 Blood Culture SEE RESULT BELOW 17 finding Hepatitis Acute 12/03/2016 Hepatitis B Surface Nonreactive Nonreactive Panel Antigen Hepatitis C Antibody Nonreactive Nonreactive Hepatitis B Core IgM Nonreactive Nonreactive Hepatitis A AB IgM Nonreactive Nonreactive Laboratory test finding 12/03/2016 C Reactive Protein 53.75 mg/L High < 5.00 18 Troponin-I (TnI) 0.01 ng/mL <0.04 Lactic Acid 0.7 mmol/L 0.5-2.0 19 Comp Metabolic Panel 12/03/2016 Sodium 136 mmol/L 133-145 Potassium 3.5 mmol/L 3.5-5.0 Chloride 103 mmol/L 101-111 Co2 Carbon Dioxide 27 mmol/L 22-32 Anion Gap 6 mmol/L 2-11 Glucose 170 mg/dL High 70-100 Blood Urea Nitrogen 6 mg/dL 6-24 Creatinine 0.83 mg/dL 0.51-0.95 BUN/Creatinine Ratio 7.2 Low 8-20 Calcium 8.8 mg/dL 8.6-10.3 Total Protein 6.8 g/dL 6.4-8.9 Albumin 3.4 g/dL 3.2-5.2 Globulin 3.4 g/dL 2-4 Albumin/Globulin Ratio 1.0 1-3 Total Bilirubin 0.40 mg/dL 0.2-1.0 Alkaline Phosphatase 139 U/L High 34-104 Alt 148 U/L High 7-52 Ast 102 U/L High 13-39 Egfr Non- 71.4 >60 Egfr 91.8 >60 20 CBC Auto Diff 12/03/2016 White Blood Count 9.4 10^3/uL 3.5-10.8 Red Blood Count 3.97 10^6/uL Low 4.0-5.4 Hemoglobin 11.6 g/dL Low 12.0-16.0 Hematocrit 34 % Low 35-47 Mean Corpuscular Volume 86 fL 80-97 Mean Corpuscular Hemoglobin 29 pg 27-31 Mean Corpuscular HGB Conc 34 g/dL 31-36 Red Cell Distribution Width 13 % 10.5-15 Platelet Count 227 10^3/uL 150-450 Mean Platelet Volume 8 um3 7.4-10.4 Abs Neutrophils 8.3 10^3/uL High 1.5-7.7 Abs Lymphocytes 0.6 10^3/uL Low 1.0-4.8 Abs Monocytes 0.4 10^3/uL 0-0.8 Abs Eosinophils 0.1 10^3/uL 0-0.6 Abs Basophils 0.1 10^3/uL 0-0.2 Abs Nucleated RBC 0 10^3/uL Granulocyte % 88.8 % High 38-83 Lymphocyte % 6.0 % Low 25-47 Monocyte % 4.0 % 1-9 Eosinophil % 0.6 % 0-6 Basophil % 0.6 % 0-2 Nucleated Red Blood Cells % 0 Inr/Protime 12/03/2016 Inr 0.91 0.89-1.11 Quantiferon Gold TB 11/21/2016 M tuberculosis by Quantiferon Negative Negative 21 TB Ag minus Nil Result 0.02 IU/mL TB Mitogen minus Nil Result > 10.00 IU/mL TB Nil Result 0.26 IU/mL 22 Rubeola Measles Igg AB 11/21/2016 Rubeola (Measles) IgG Antibody Negative 23 Rubeola IgG Antibody Index 0.8 24 Mumps Igg 11/21/2016 Mumps Virus IgG Antibody Negative 25 Mumps IgG Antibody Index 0.6 26 Laboratory test finding 11/21/2016 Rubella Screen Immune IU/mL Immune Varicella Zoster Igg AB 11/21/2016 Varicella-Zoster IgG Positive 27 Antibody Varicella IgG Antibody Index 5.5 28 Laboratory test finding 11/21/2016 Hepatitis C Antibody Nonreactive Nonreactive Laboratory test finding 09/03/2016 Helico Pylori Negative Negative 29 Antigen- Stool CBC Auto Diff 09/03/2016 White Blood Count 5.9 10^3/uL 3.5-10.8 Red Blood Count 4.39 10^6/uL 4.0-5.4 Hemoglobin 12.4 g/dL 12.0-16.0 Hematocrit 38 % 35-47 Mean Corpuscular Volume 87 fL 80-97 Mean Corpuscular Hemoglobin 28 pg 27-31 Mean Corpuscular HGB Conc 33 g/dL 31-36 Red Cell Distribution Width 14 % 10.5-15 Platelet Count 234 10^3/uL 150-450 Mean Platelet Volume 8 um3 7.4-10.4 Abs Neutrophils 3.7 10^3/uL 1.5-7.7 Abs Lymphocytes 1.8 10^3/uL 1.0-4.8 Abs Monocytes 0.4 10^3/uL 0-0.8 Abs Eosinophils 0.1 10^3/uL 0-0.6 Abs Basophils 0.1 10^3/uL 0-0.2 Abs Nucleated RBC 0 10^3/uL Granulocyte % 62.1 % 38-83 Lymphocyte % 29.7 % 25-47 Monocyte % 6.4 % 1-9 Eosinophil % 1.0 % 0-6 Basophil % 0.8 % 0-2 Nucleated Red Blood Cells % 0.1 Laboratory test finding 09/03/2016 TSH (Thyroid Stim Horm) 3.36 mcIU/mL 0.34-5.60 Free T4 (Free Thyroxine) 0.67 ng/dL 0.61-1.12 Order 08/06/2016 EKG results given to Laboratory test 06/20/2016 TSH (Thyroid Stim 6.27 mcIU/mL High 0.34-5.60 30 finding Horm) Lipid Profile 06/20/2016 Triglycerides 69 mg/dL 31 (Trig/Chol/HDL) Cholesterol 207 mg/dL 32 HDL Cholesterol 85.0 mg/dL 33 LDL Cholesterol 108 mg/dL 34 Basic Metabolic Panel 06/20/2016 Sodium 136 mmol/L 133-145 Potassium 4.1 mmol/L 3.5-5.0 Chloride 103 mmol/L 101-111 Co2 Carbon Dioxide 28 mmol/L 22-32 Anion Gap 5 mmol/L 2-11 Glucose 96 mg/dL 70-100 Blood Urea Nitrogen 8 mg/dL 6-24 Creatinine 0.80 mg/dL 0.51-0.95 BUN/Creatinine Ratio 10.0 8-20 Calcium 8.7 mg/dL 8.6-10.3 Egfr Non- 74.5 >60 Egfr 95.8 >60 35 1 FASTING 2 FASTING 3 Desirable: <150 Borderline High: 150-199 High: 200-499 Very High: >500 4 Desirable: <200 Borderline High: 200-239 High: >239 5 Low: <40 Desirable: 40-60 High: >60 6 Desirable: <100 Near Optimal: 100-129 Borderline High: 130-159 High: 160-189 Very High: >189 7 FASTING 8 Not diagnostic. Supplemental testing ordered by reflex. Test Performed by: [facility] [employer] [facility] [address] 9 RESULT: p66, p45, p41, p39, p30, p28, p23, p18, 10 Consistent with active or previous infection for B. burgdorferi. IgM blot criteria is of diagnostic utility only during the first 4 weeks of early Lyme disease. ADDITIONAL INFORMATION CDC criteria require >=5 bands for IgG or >=2 bands for IgM for the Immunoblot to be considered positive. Bands (e.g.,p41) may be detected in patients without Lyme disease, and patterns not meeting the CDC criteria should be interpreted with caution. Immunoblot should be ordered only on specimens that are positive or equivocal by a FDA-licensed Lyme disease antibody screening test (e.g., EIA). Test Performed by: [facility] [place] [place] [address] 11 Test Performed by: [place] [address] 12 RESULT: Results suggest past infection. ADDITIONAL INFORMATION In most populations, at least 90% of the adult population will have been infected with EBV sometime in the past and therefore, will be positive for anti-VCA/IgG and anti- EBNA. Antibodies to EBNA develop 6-8 weeks after primary infection and remain present for life. Presence of VCA/ IgM antibodies indicates recent primary infection with EBV. Test Performed by: [facility] [place] [address] 13 RESULT: p66, p45, p41, p39, p30, p28, p23, p18, 14 No bands detected 15 Consistent with infection with B. burgdorferi at some time in the past. ADDITIONAL INFORMATION CDC criteria require >=5 bands for IgG or >=2 bands for IgM for the Immunoblot to be considered positive. Bands (e.g.,p41) may be detected in patients without Lyme disease, and patterns not meeting the CDC criteria should be interpreted with caution. Immunoblot should be ordered only on specimens that are positive or equivocal by a FDA-licensed Lyme disease antibody screening test (e.g., EIA). Test Performed by: [place] [address] 16 Not diagnostic. Supplemental testing ordered by reflex. Test Performed by: [place] [address] 17 SEE RESULT BELOW Name: CORA IQBAL : [address]: Isela Abraham MD Acct: [id number] Unit: [id number] AGE: 56 Location: ED Re12/03/16 SEX: F Status: DEP ER SPEC: [id number] CARLOTA: 12/03/[address]: Isela Abraham MD REQ: [id number] RECD: 12/03/16 STATUS: MICHELLE COFFEY DR: Real Huston MD _ SOURCE: BLOOD,VENO SPDESC: ORDERED: Blood Cult Procedure Result Reported Site Aerobic Culture Bottle Final 12/08/162135 ML No Growth Day 5 Anaerobic Culture Bottle Final 12/08/162135 ML No Growth Day 5 * ML - MAIN LAB (PSC1) . END OF REPORT * ML=Testing performed at Main Lab DEPARTMENT OF PATHOLOGY, [address] [place] [address] Edwar Cantor M.D. Director [facility] # [id number] 18 Acute inflammation: >10.00 19 [facility] Severe Sepsis and Septic Shock Management Bundle Measure requires all lactic acids initially measuring >2.0 mmol/L be repeated. 20 Because ethnic data is not always readily available, this report includes an eGFR for both -Americans and non- Americans. The National Kidney Disease Education Program (NKDEP) does not endorse the use of the MDRD equation for patients that are not between the ages of 18 and 70, are , have extremes of body size, muscle mass, or nutritional status, or are non- or non-. According to the National Kidney Foundation, irrespective of diagnosis, the stage of the disease is based on the level of kidney function: Stage Description GFR(mL/min/1.73 m(2)) 1 Kidney damage with normal or decreased GFR 90 2 Kidney damage with mild decrease in GFR 60-89 3 Moderate decrease in GFR 30-59 4 Severe decrease in GFR 15-29 5 Kidney failure <15 (or dialysis) 21 No interferon-gamma response to M. tuberculosis antigens was detected. Infection with M. tuberculosis is unlikely. A negative result alone does not exclude infection with M. tuberculosis. For detailed information regarding test interpretation see: [email or web address]/ [email or web address] 22 Test Performed by: [facility] - [address] [address] 23 REFERENCE VALUE Vaccinated: Positive (>=1.1 AI) Unvaccinated: Negative (<=0.8 AI) 24 Test Performed by: [address] [place] [address] 25 REFERENCE VALUE Vaccinated: Positive (>=1.1 AI) Unvaccinated: Negative (<=0.8 AI) 26 Test Performed by: [facility] [place] [address] 27 Results suggest response to immunization or prior exposure to the virus. REFERENCE VALUE Vaccinated: Positive (>=1.1 AI) Unvaccinated: Negative (<=0.8 AI) 28 Test Performed by: [facility] [place] [address] 29 Test Performed by: [place] [address] 30 FASTING 10 HOUR 31 Desirable <150 Borderline high 150-199 High 200-499 Very High >500 32 Desirable <200 Borderline high 200-239 High >239 33 Low <40 Desirable: 40-60 High: >60 34 Desirable: <100 mg/dL Near Optimal: 100-129 mg/dL Borderline High: 130-159 mg/dL High: 160-189 mg/dL Very High: >189 mg/dL 35 Because ethnic data is not always readily available, this report includes an eGFR for both -Americans and non- Americans. The National Kidney Disease Education Program (NKDEP) does not endorse the use of the MDRD equation for patients that are not between the ages of 18 and 70, are , have extremes of body size, muscle mass, or nutritional status, or are non- or non-. According to the National Kidney Foundation, irrespective of diagnosis, the stage of the disease is based on the level of kidney function: Stage Description GFR(mL/min/1.73 m(2)) 1 Kidney damage with normal or decreased GFR 90 2 Kidney damage with mild decrease in GFR 60-89 3 Moderate decrease in GFR 30-59 4 Severe decrease in GFR 15-29 5 Kidney failure <15 (or dialysis) Procedures Date CPT Code Description Status 02/05/2017 Colonoscopy Completed 08/06/2016 78951 EKG Tracing & Interpretation Completed 06/27/2016 Bone Mineral Density Test Completed 06/27/2016 Mammogram Completed 09/23/2011 Colonoscopy Completed Encounters Type Date Location Provider CPT E/M Dx Office Visit 11/12/2017 [facility] Internal Real Huston, [address] G43.829 4:00p Medicine - [place] Jenkins,FACP M17.11 R14.2 Office Visit 08/11/2017 8:30a [facility] Karen Moyer, [address] M65.841 Of Kenn Jenkins Office Visit 07/28/2017 3:40p [facility] Medicine Angela Huertas, [address] M79.[address] - [place] [address] LOAN ASSISTANT Office Visit 07/14/2017 3:40p [facility] Medicine Real Huston, [address] H60.8x1 - [place] Kyle Jenkins,FACP Office Visit 06/19/2017 1:50p [facility] Medicine Angela Huertas, [address] Z01.818 - [address] LOAN ASSISTANT H28 H26.9 Office Visit 12/18/2016 9:50a [facility] Medicine Real Huston, [address] K75.9 - [place] Kyle Jenkins,FACP A69.20 Z11.1 Office Visit 11/21/2016 8:30a [facility] Medicine Real [place], [address] M54.2 - [place] Kyle Jenkins,FACP Z11.1 Z11.59 Office Visit 10/16/2016 8:30a [facility] Medicine Real [place], [address] M54.2 - [place] Kyle Jenkins,FACP G43.019 E03.9 Office Visit 07/17/2016 2:00p [facility] [place], [address] M54.2 Medicine - [place] Kyle Jenkins,FACP Office Visit 07/05/2016 10:00a [facility] [place], [address] K29.00 Medicine - [place] Kyle Jenkins,FACP G43.019 Office Visit 05/31/2016 3:00p [facility] Real [place], [address]348 G43.019 Medicine - [address] Gregory,FACP E03.9 F20.89 M54.5 Office Visit 08/02/2015 3:49p [facility] Cristofer Martinez, [address]237 M54.5 Hospitalists N.P. F29 F23 Office Visit 08/24/2013 11:00a [facility] Ender Whitman, [address] 346.11 Services Of Danielito Jenkins Plan of Care Future Appointment(s):11/27/2017 10:00 am - Weston Lozoya MD at [facility] of [facility]04/20/2018 4:20 pm - Real [place]on M.D.,FACP at [facility] Medicine - [address]11/12/2017 - Real Huston M.D.,FACPG43.829 Menstrual migraine, not intractable, w/o status migrainosusComments:Prescribed Climara Pro patch as directed once weekly for migraines and hot flashes. Follow up with Dr. Lozoya. Also continue zolitriptan for abortive and verapamil ER for prevention.Referral:Weston Lozoya MD, telesales advisor/Phys/HdagpJ78.11 Unilateral primary osteoarthritis, right kneeNew Therapy:Physical TherapyComments:Have right knee X-ray performed. Follow up with PT for manual treatment of symptoms.R14.2 EructationComments:Increased gas and bloating may be due to dietary changes. Try to decrease intake of spices and dairyfor a few weeks.
--- OUTSIDE RECORDS SUMMARY | 2017-11-23 13:00 | XMS REPORT ---
:1960 External Reference #:[id number] Author Organization [employer] Address [address] [facility] [place] [address] Phone [phone] Care Team Providers Name Role Phone Real Huston MD Primary Care Physician Unavailable Payers Type Date Identification Numbers Payment Provider Subscriber Medicare Primary Effective: Policy Number: Medicare Cora Iqbal 1991 [id number] PayID: [id number] [address] [place] [address] Medigap Part B Policy Number: [id number] Medicaid Cora Iqbal PayID: [id number] [address] [place] [address] Problems Date Description Provider Status Onset: 05/31/2016 [...] Angela 2016 24HR s mouth Huertas, every [employer]GER [employer] night at bedtime Cyclobenzaprine 06/24/ Active Tablets 10mg 90tab take 1 Angela HCL 2016 s tablet Huertas, three [employer] times a day as needed Levothyroxine 06/20/ [...] Angela 2015 Dispers mouth Huertas, every 2 MANAGER [employer] hours mdd2 as needed migraine( 9 tablets [...] 12/03/ Hx Capsules 100[facility] Ordering 12/16/ twice Provider 2017 daily for 10 days. Lidoderm 07/20/ Hx Patches 5% 30uni apply one Tyler 2017 - ts patch 12 Marian, 11/17/ hours on M.D. 2016 and 12 hours off Codeine Sulfate 07/05/ Hx Tablets 15mg 30tab 1 by Real 2017 - s mouth Karlie Huston, 04/18/ four M.D.,[facility] 2017 times a day as needed up to 4 days a week, up to 2 weeks/fri Levothyroxine 06/20/ Hx Solution 100mcg 1 by Rael Sodium 2016 - Rec mouth DGiovanni Huston, 06/20/ every day M.D.,[facility] 2016 Orphenadrine 06/04/ Hx Tablets ER 100mg 14tab 1 by Real Citrate ER 2016 - 12HR s mouth Karlie Huston, 06/24/ twice a M.D.,[facility] 2016 day as needed Fiorinal/Codeine 05/31/ Hx Capsules 50-325-40 16cap 1 cap by Real #3 2015 - -30mg s mouth DGiovanni Huston, 07/05/ three a M.D.,[facility] 2016 day as needed for migraines , maximum 2d/week (max ) Rizatriptan 05/31/ Hx Tablets 10mg 14tab 1 by Real Benzoate 2015 - Dispers s mouth DGiovanni Huston, 05/31/ twice a M.D.,[facility] 2015 day as needed headache max 2 days a week Clonazepam 05/31/ Hx Tablets 0.5mg 30tab 1 by Real 2015 - s mouth Karlie Huston, 10/16/ daily for M.D.,[facility] 2016 anxiety as needed Riboflavin 05/31/ Hx Capsules 100mg 120ca 4 every Real 2015 - ps day DGiovanni Huston, 10/16/ M.D.,[facility] 2016 Metaxalone 05/31/ Hx Tablets 800mg 30tab 1/2 -1 by Real 2015 - s mouth Karlie Huston, 06/04/ three M.D.,[facility] 2016 times a day as needed Levothyroxine [...] 0000 - mouth Karlie Huston, 11/21/ daily Gregory,[facility] 2017 Magnesium 00/ Hx 100mg 1 po [...] Ordering Provider PPD Administered Injection Real [facility] M.D[facility]Unsp Administered Injection Unknown ecified 999 Immunizations CPT Code Status Date Vaccine Lot # [id number] Given 04/10/2017 Influenza Virus Vaccine, Quadrivalent, Split, Preservative Free 08041 Given 05/01/2012 Zoster (Zostavax) 17611 Given 07/12/2011 Tdap - Tetanus/Diptheria/Acellular Pertussis 35811 Given 01/11/1998 Measles Mumps And Rubella MMR [...] testing ordered by reflex. Test Performed by: [facility] [place] [address] 9 RESULT: p66, p45, p41, p39, p30, [...] screening test (e.g., EIA). Test Performed by: [facility] [place] [address] 11 Test Performed by: [place] [address] 12 RESULT: Results suggest past infection. ADDITIONAL [...] primary infection with EBV. Test Performed by: [facility] [place] [address] 13 RESULT: p66, p45, p41, p39, p30, [...] screening test (e.g., EIA). Test Performed by: [place] [address] 16 Not diagnostic. Supplemental testing ordered by reflex. Test Performed by: [place] [address] 17 SEE RESULT BELOW Name: CORA IQBAL : [address]: Isela Abraham MD Acct: [id number] Unit: [id number] AGE: 56 Location: ED Re12/03/16 SEX: F Status: DEP ER SPEC: [id number] [place]: 12/03/[address]: Isela Abraham MD REQ: [id number] RECD: 12/03/16 STATUS: MICHELLE COFFEY DR: Real Huston MD _ SOURCE: BLOOD,VENO SPDESC: ORDERED: Blood Cult Procedure Result Reported Site Aerobic Culture Bottle Final 12/08/162135 ML No Growth Day 5 Anaerobic Culture Bottle Final 12/08/162135 ML No Growth Day 5 * ML - MAIN LAB (PSC1) . END OF REPORT * ML=Testing performed at Main Lab DEPARTMENT OF PATHOLOGY, [address] [place] [address] Edwar Cantor M.D. Director [facility] # [id number] 18 Acute inflammation: >10.00 19 [facility] Severe Sepsis and Septic Shock Management Bundle [...] For detailed information regarding test interpretation see: [email or web address] 22 Test Performed by: [facility] - [address] [address] 23 REFERENCE VALUE Vaccinated: Positive (>=1.1 AI) Unvaccinated: Negative (<=0.8 AI) 24 Test Performed by: [address] [place] [address] 25 REFERENCE VALUE Vaccinated: Positive (>=1.1 AI) Unvaccinated: Negative (<=0.8 AI) 26 Test Performed by: [facility] [place] [address] 27 Results suggest response to immunization or prior exposure to the virus. REFERENCE VALUE Vaccinated: Positive (>=1.1 AI) Unvaccinated: Negative (<=0.8 AI) 28 Test Performed by: [facility] [place] [address] 29 Test Performed by: [place] [address] 30 FASTING 10 HOUR 31 Desirable <150 [...] Code Description Status 02/05/2017 Colonoscopy Completed 08/06/2016 02078 EKG Tracing & Interpretation Completed 06/27/2016 Bone Mineral Density Test Completed 06/27/2016 Mammogram Completed 09/23/2011 Colonoscopy Completed Encounters Type Date Location Provider CPT E/M Dx Office Visit 11/12/2017 [facility] Real [place], [address] G43.829 4:00p Medicine - [place] Kyle Jenkins,FACP M17.11 R14.2 Office Visit 08/11/2017 8:30a Orthopedic Services Karen Moyer, [address] M65.841 Of Kenn Jenkins Office Visit 07/28/2017 3:40p [facility] Medicine Angela Huertas, [address] M79.644 [address] MANAGER [employer]S MANAGEMENT Office Visit 07/14/2017 3:40p [facility] Medicine [place], [address] H60.8x1 - [place] Kyle Jenkins,FACP Office Visit 06/19/2017 1:50p [facility] Angela Huertas, [address] Z01.818 - [address] MANAGER [employer] MANAGEMENT H28 H26.9 Office Visit 12/18/2016 9:50a [facility] Medicine Real [place], [address] K75.9 - [place] Kyle Jenkins,FACP A69.20 Z11.1 Office Visit 11/21/2016 8:30a [facility] Medicine Real [place], [address] M54.2 - [place] Kyle Jenkins,FACP Z11.1 Z11.59 Office Visit 10/16/2016 8:30a [facility] Medicine Real [place], [address] M54.2 - [place] Kyle Jenkins,FACP G43.019 E03.9 Office Visit 07/17/2016 2:00p [facility] [place], [address] M54.2 Medicine - [place] Kyle Jenkins,FACP Office Visit 07/05/2016 10:00a [facility] [place], [address] K29.00 Medicine - [place] Kyle Jenkins,FACP G43.019 Office Visit 05/31/2016 3:00p [facility] Real [place], [address]21 G43.019 Medicine - [address] Gregory,FACP E03.9 F20.89 M54.5 Office Visit 08/02/2015 3:49p [facility] Cristofer Martinez, [address] M54.5 Hospitalists N.P. F29 F23 Office Visit 08/24/2013 11:00a [facility] Ender Whitman, 80[address] 346.11 Services Of Danielito Jenkins Plan of Care Future Appointment(s):11/27/2017 10:00 am - Weston Lozoya MD at [facility]04/20/2018 4:20 pm - Real [place]uston M.D.,FACP at [facility] Medicine - [address]11/12/2017 - Real Huston M.D.,FACPG43.829 Menstrual migraine, not intractable, w/o status migrainosusComments:Prescribed Climara Pro patch as directed once weekly for migraines and hot flashes. Follow up with Dr. Lozoya.Referral:Weston Lozoya MD, lap machine tender/Phys/DwergY39.11 Unilateral primary osteoarthritis, right kneeNew Therapy:Physical TherapyComments:Have right knee X-ray performed. Follow up with PT for manual treatment of symptoms.R14.2 EructationComments:Increased gas and bloating may be due to dietary changes. Try to decrease intake of spices and dairyfor a few weeks.
--- NOTE | 2017-11-23 13:04 | ED ---
Skin Complaint - HPI Summary HPI Summary: 57 y/o female presents to the urgent care s/o sore in her RT side upper lip for the past 4 days. Pt is concern about MRSA since she was near a person who was recently Dx w/ MRSA. She denies kissing him, she just hug him. However, she states the sore has a yellowish crusting w/ mild drainage. Pt states she has Hx of Migraine PEREZ and sometimes she gets mild fever and develops a a mouth sore, but this one is different. 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 Pt denies fever, pain, SOB, chest pain, abdominal pain, N/V/D, Hx of herpes or shingles. Pt has not taking anything to alleviate symptoms. - History of Current Complaint Hx Obtained From: Patient Hx Last Menstrual Period: 02/15/15 Onset/Duration: Started Days Ago - 4 days ago Skin Exposure Onset/Duration: Days Ago - 4 days Timing: Constant Onset Severity: Mild Current Severity: Mild Pain Intensity: 2 Pain Scale Used: 0-10 Numeric Skin Location: Discrete - RT side of upper lip Character: Redness, Painful Aggravating Symptom(s): Touch Alleviating Symptom(s): Nothing Associated Signs & Symptoms: Chills, Rash - RT side of upper lip, Drainage - yellowish crusting Related History: Other: - exposure to MRSA <Agnieszka Nuñez - Last Filed: 11/23/17 13:57> <Ender Goff - Last Filed: 11/23/17 14:19> - History of Current Complaint Time Seen by Provider: 11/23/17 13:00 Stated Complaint: SORE ON FINGER - Allergy/Home Medications Allergies/Adverse Reactions: Allergies Allergy/AdvReac Type Severity Reaction Status Date / Time latex Allergy Mild Rash Verified 11/23/17 13:06 PMH/Surg Hx/FS Hx/Imm Hx Previously Healthy: Yes Endocrine/Hematology History: Reports: Hx Thyroid Disease - hypothyrodism Denies: Hx Anticoagulant Therapy, Hx Blood Disorders, Hx Blood Transfusions, Hx Bone Marrow Disease, Hx Diabetes, Hx Systemic Lupus Erythematosus, Hx Sickle Cell Disease, Hx Anemia, Hx Unexplained Bleeding, Other Endocrine/Hematological Disorders Cardiovascular History: Reports: Hx Rheumatic Fever - as a child Denies: Hx Hypertension, Hx Pacemaker/ICD Respiratory History: Denies: Hx Asthma, Hx Chronic Obstructive Pulmonary Disease (COPD) GI History: Reports: Other GI Disorders - gastritis Denies: Hx Ulcer Musculoskeletal History: Reports: Hx Arthritis, Hx Back Problems, Hx Bursitis, Other Musculoskeletal History - neck pain Sensory History: Reports: Hx Cataracts, Hx Contacts or Glasses, Other Sensory Impairments - dentures Denies: Hx Eye Injury, Hx Eye Prosthesis, Hx Glaucoma, Hx Legally Blind, Hx Macular Degeneration, Hx Vision Problem, Hx Deafness, Hx Hearing Aid, Hx Hearing Problem Opthamlomology History: Reports: Hx Cataracts, Hx Contacts or Glasses, Other Sensory Impairments - dentures Denies: Hx Eye Injury, Hx Eye Prosthesis, Hx Glaucoma, Hx Legally Blind, Hx Macular Degeneration, Hx Vision Problem Neurological History: Reports: Hx Migraine Denies: Hx Dementia, Hx Developmental Delay, Hx Headaches, Hx Nerve Disease, Hx Seizures, Hx Spinal Cord Injury, Hx Transient Ischemic Attacks (TIA), Other Neuro Impairments/Disorders - PAIN CLINIC PATIENTS Psychiatric History: Reports: Hx Anxiety, Hx Inpatient Treatment - Not in 11 years, Hx [facility] Tx - Has therapist and volutneers at [facility] where gets help, Hx Schizophrenia, Hx Substance Abuse - Recent episodes of excessive drinking Denies: Hx Attention Deficit Hyperactivity Disorder, Hx Eating Disorder, Hx Depression, Hx Panic Disorder, Hx Post Traumatic Stress Disorder, Hx Bipolar Disorder, Hx Suicide Attempt, Hx of Violent Episodes Against Others, Other Psychiatric Issues/Disorders - Cancer History Hx Chemotherapy: No Hx Radiation Therapy: No - Surgical History Surgery Procedure, Year, and Place: 2 fx nose. benign cyst left leg Hx Anesthesia Reactions: No Infectious Disease History: Denies: Hx Hepatitis, Hx Human Immunodeficiency Virus (HIV), Hx of Known/ Suspected MRSA, Hx Shingles, Hx Tuberculosis, Hx Known/Suspected VRE, Hx Known/ Suspected VRSA, History Other Infectious Disease, Traveled Outside the [place] in Last 30 Days - Family History Known Family History: Positive: Unknown, Hypertension, Other - thyroid disease Negative: Cardiac Disease, Diabetes - Social History Alcohol Use: Weekly Alcohol Amount: 1-2 glasses of wine/ week Hx Substance Use: No Substance Use Type: Reports: None Smoking Status (MU): Former Smoker Type: Cigarettes Amount Used/How Often: smoked on and off since 15-16 years , 1ppd Have You Smoked in the Last Year: No <Agnieszka Nuñez - Last Filed: 11/23/17 13:57> Review of Systems Positive: Chills Eyes: Negative Positive: Other - sore in her RT side of upper lip Respiratory: Negative Gastrointestinal: Negative Genitourinary: Negative Musculoskeletal: Negative Positive: Rash - sore in the RT side of upper lip w/ yellowish crusting Neurological: Negative Psychological: Normal All Other Systems Reviewed And Are Negative: Yes <Agnieszka Nuñez - Last Filed: 11/23/17 13:57> Physical Exam - Summary Physical Exam Summary: Vital Signs Reviewed: Yes General: well developed, well nourished female sitting in the examining table w/ o any apparent distress. Eyes: Positive: Conjunctiva Clear - PERRLA, EOMI ENT: Positive: Normal ENT inspection, Hearing grossly normal, Pharynx normal, TMs normal Neck: Positive: Supple, Nontender, No Lymphadenopathy Respiratory: Positive: Chest nontender, Lungs clear, Normal breath sounds Cardiovascular: Positive: RRR, No Murmur, Pulses Normal Abdomen Description: Positive: Nontender, No Organomegaly, Soft. Negative: CVA Tenderness (R), CVA Tenderness (L) Bowel Sounds: Positive: Present Musculoskeletal: Positive: Strength Intact, ROM Intact, No Edema Neurological Exam: Normal Psychological Exam: Normal Skin: Positive: positive RT side of upper lip w/ an erythematous eruption w/ discrete vesicles w/ yellowish honey crusting and mild drainage about 0.5cmx 0.5cm in size, mild tenderness to palpation, mild swelling, Triage Information Reviewed: Yes <Agnieszka Nuñez - Last Filed: 11/23/17 13:57> Vital Signs On Initial Exam: Initial Vitals Temp Pulse Resp BP Pulse Ox 98.0 F 101 18 98/62 99 11/23/17 13:00 11/23/17 13:00 11/23/17 13:00 11/23/17 13:00 11/23/17 13:00 <Ender Goff - Last Filed: 11/23/17 14:19> Diagnostics - Vital Signs Vital Signs Temp Pulse Resp BP Pulse Ox 11/23/17 13:00 98.0 F 101 18 98/62 99 <Ender Goff - Last Filed: 11/23/17 14:19> Course/Dx - Course Course Of Treatment: 57 y/o female presents to the urgent care s/o sore in her RT side upper lip for the past 4 days. Pt is concern about MRSA since she was near a person who was recently Dx w/ MRSA. She denies kissing him, she just hug him. However, she states the sore has a yellowish crusting w/ mild drainage. Pt states she has Hx of Migraine PEREZ and sometimes she gets mild fever and develops a a mouth sore, but this one is different. 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 Pt denies fever, pain, SOB, chest pain , abdominal pain, N/V/D, Hx of herpes or shingles. Pt has not taking anything to alleviate symptoms. Hx obtained. Pt w/ a erythematous papule w/ discrete vesicles and yellowish honey cruting on the RT side of upper lip, non tender to palpation on examination. Pt probably w/ impetigo. Wound culture taken and sent to lab. Also Herpes 1&2 ordered since I think it can be also Herpes labialis. Pt will be notified of lab results. However Pt requested PO ABx. Pt Rx Bactroban topical cream and Bactrim PO to cover for MRSA. D/C instructions explained. Pt understood and agreed w/ plan of care. - Differential Diagnoses - Skin Complaint Differential Diagnoses: Abscess, Cellulitis, Contact Dermatitis, Impetigo, MRSA , Other - herpes simplex I, apthous ulcers <Agnieszka Nuñez - Last Filed: 11/23/17 13:57> <Ender Goff - Last Filed: 11/23/17 14:19> - Diagnoses Provider Diagnoses: Impetigo, Rash Discharge - Sign-Out/Discharge Documenting (check all that apply): Discharge/Admit/Transfer - D/C home - Billing Disposition and Condition Condition: STABLE Disposition: Home <Agnieszka Nuñez - Last Filed: 11/23/17 13:57> - Billing Disposition and Condition Condition: STABLE Disposition: Home <Ender Goff - Last Filed: 11/23/17 14:19> - Discharge Plan Condition: Stable Disposition: HOME Prescriptions: Mupirocin 2% CREAM* [Bactroban 2% CREAM*] 1 applic TOPICAL BID #1 tube Sulfamethox/Trimethoprim DS* [Bactrim DS 800/160 TAB*] 1 tab PO BID #14 tab Patient Education Materials: Impetigo (ED), Acute Rash (ED) Referrals: Real Huston MD [Primary Care Provider] - 3 Days Additional Instructions: 1-Please take full course of Antibiotic. 2- Apply Bactroban topical cream over the affected area as directed to alleviate rash. 3-Wound culture sent to lab to r/o MRSA and Herpes Simplex 1&2 also ordered. You will be notified of the results 4-Please F/u with your PCP in 2-3 days if not improvement or worsening of symptoms for further evaluation and treatment. Per institutional requirements, I have reviewed the chart, however, I was not consulted specifically or made aware of this patient by the above midlevel provider. I did not personally evaluate, interact with , or disposition this patient.
[2017-11-23 13:06] VITALS: BP 98/62
--- NOTE | 2017-11-25 13:21 | UC ---
- Progress Note Progress Note: MRSA neg Pt on Bactrim await final sensitivity isidro 11/25/2017 Course/Dx - Diagnoses Provider Diagnoses: Impetigo, Rash Discharge - Sign-Out/Discharge Documenting (check all that apply): Post-Discharge Follow Up - Discharge Plan Condition: Stable Disposition: HOME Prescriptions: Mupirocin 2% CREAM* [Bactroban 2% CREAM*] 1 applic TOPICAL BID #1 tube Sulfamethox/Trimethoprim DS* [Bactrim DS 800/160 TAB*] 1 tab PO BID #14 tab Patient Education Materials: Impetigo (ED), Acute Rash (ED) Referrals: Real Huston MD [Primary Care Provider] - 3 Days Additional Instructions: 1-Please take full course of Antibiotic. 2- Apply Bactroban topical cream over the affected area as directed to alleviate rash. 3-Wound culture sent to lab to r/o MRSA and Herpes Simplex 1&2 also ordered. You will be notified of the results 4-Please F/u with your PCP in 2-3 days if not improvement or worsening of symptoms for further evaluation and treatment. Per institutional requirements, I have reviewed the chart, however, I was not consulted specifically or made aware of this patient by the above midlevel provider. I did not personally evaluate, interact with , or disposition this patient. - Billing Disposition and Condition Condition: STABLE Disposition: Home
[2017-11-25 14:36] LABS: Herpes Simplex Virus II IgG AB Positive (Negative)
--- NOTE | 2017-11-25 19:56 | UC ---
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 Course/Dx - Diagnoses Provider Diagnoses: Impetigo, Rash Discharge - Sign-Out/Discharge Documenting (check all that apply): Discharge/Admit/Transfer - Discharge Plan Condition: Stable Disposition: HOME Prescriptions: Mupirocin 2% CREAM* [Bactroban 2% CREAM*] 1 applic TOPICAL BID #1 tube Sulfamethox/Trimethoprim DS* [Bactrim DS 800/160 TAB*] 1 tab PO BID #14 tab Patient Education Materials: Impetigo (ED), Acute Rash (ED) Referrals: Real Huston MD [Primary Care Provider] - 3 Days Additional Instructions: 1-Please take full course of Antibiotic. 2- Apply Bactroban topical cream over the affected area as directed to alleviate rash. 3-Wound culture sent to lab to r/o MRSA and Herpes Simplex 1&2 also ordered. You will be notified of the results 4-Please F/u with your PCP in 2-3 days if not improvement or worsening of symptoms for further evaluation and treatment. Per institutional requirements, I have reviewed the chart, however, I was not consulted specifically or made aware of this patient by the above midlevel provider. I did not personally evaluate, interact with , or disposition this patient. - Billing Disposition and Condition Condition: STABLE Disposition: Home
--- NOTE | 2017-11-26 16:54 | UC ---
- Progress Note Progress Note: patient may stop antibiotic not staph or MRSA in wound---normal parmjit Course/Dx - Diagnoses Provider Diagnoses: Impetigo, Rash Discharge - Sign-Out/Discharge Documenting (check all that apply): Post-Discharge Follow Up - Discharge Plan Condition: Stable Disposition: HOME Prescriptions: Mupirocin 2% CREAM* [Bactroban 2% CREAM*] 1 applic TOPICAL BID #1 tube Sulfamethox/Trimethoprim DS* [Bactrim DS 800/160 TAB*] 1 tab PO BID #14 tab Patient Education Materials: Impetigo (ED), Acute Rash (ED) Referrals: Real Huston MD [Primary Care Provider] - 3 Days Additional Instructions: 1-Please take full course of Antibiotic. 2- Apply Bactroban topical cream over the affected area as directed to alleviate rash. 3-Wound culture sent to lab to r/o MRSA and Herpes Simplex 1&2 also ordered. You will be notified of the results 4-Please F/u with your PCP in 2-3 days if not improvement or worsening of symptoms for further evaluation and treatment. Per institutional requirements, I have reviewed the chart, however, I was not consulted specifically or made aware of this patient by the above midlevel provider. I did not personally evaluate, interact with , or disposition this patient. - Billing Disposition and Condition Condition: STABLE Disposition: Home
== END 2017-11-23 13:59 | disposition home or self-care (01) ==
LOC: UCEAST 12:51
DX: L01.00 Impetigo, unspecified (principal); R21 Rash and other nonspecific skin eruption; Z91.040 Latex allergy status
CPT/HCPCS: 86695; 86696; 87070; 87205; 87640; 87641; 99212; G0463

== ENCOUNTER 2019-04-26 16:10 | Emergency (ER) | payer MEDICARE, MEDICAID ==
[2019-04-26 16:34] LABS: ABS Eosinophils 0.1 10^3/ul (0-0.6); ABS Lymphocytes 1.3 10^3/ul (1.0-4.8); ABS Monocytes 0.3 10^3/ul (0-0.8); ABS Neutrophils 2.3 10^3/ul (1.5-7.7); Eosinophil % 1.4 %; Hematocrit 35 % (35-47); Hemoglobin 11.7 g/dL (12.0-16.0); Lymphocyte % 32.2 %; Mean Corpuscular HGB Conc 34 g/dL (31-36); Mean Corpuscular Hemoglobin 29 pg (27-31); Mean Corpuscular Volume 86 fL (80-97); Mean Platelet Volume 7.3 fL (7.4-10.4); Platelet Count 239 10^3/uL (150-450); Red Blood Count 4.01 10^6 /uL (3.70-4.87); Red Cell Distribution Width 14 % (10-15); White Blood Count 3.9 10^3/uL (3.5-10.8)
[2019-04-26 16:47] LABS: Albumin 4.1 g/dL (3.2-5.2); Anion Gap 5 mmol/L (2-11); CO2 Carbon Dioxide 33 mmol/L (22-32); Calcium 9.3 mg/dL (8.6-10.3); Chloride 100 mmol/L (101-111); Magnesium 1.9 mg/dL (1.9-2.7); Potassium 3.3 mmol/L (3.5-5.0); Sodium 138 mmol/L (135-145)
[2019-04-26 16:53] LABS: ALT 28 U/L (7-52); AST 27 U/L (13-39); Albumin/Globulin Ratio 1.4 (1-3); Alkaline Phosphatase 56 U/L (34-104); BUN/Creatinine Ratio 15.5 (8-20); Blood Urea Nitrogen 13 mg/dL (6-24); C Reactive Protein < 1.00 mg/L (<8.01); EGFR African American 84.3 (>60); EGFR Non-African American 69.6 (>60); Glucose 97 mg/dL (70-100); Total Protein 7.1 g/dL (6.4-8.9)
--- OUTSIDE RECORDS SUMMARY | 2019-04-26 17:05 | XMS REPORT | Continuity of Care Document ---
:1960 External Reference #:[id number] Author Name NITISH Arechiga Address [address] [address] Care Team Providers Name Role Phone Real Huston M.D. 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 [phone] Medicine Problems Active Problems Provider Date Varicose veins of lower extremity Ej Abdi Onset: 01/01/2018 Body mass index 20-24 - normal NITISH Arechiga Onset: 03/18/2019 Social History Type Date Description Comments Sex Unknown ETOH Use Denies alcohol use Tobacco Use Start: Unknown Patient has never smoked Smoking Status Reviewed: 04/30/18 Patient has never smoked Allergies, Adverse Reactions, Alerts Active Allergies Reaction Severity Comments Date Climara reaction 08/20/2018 Inactive Allergies NKDA 01/01/2018 Medications Active Medications SIG Qnty Indications Ordering Provider Date Compression Stockings 1Pair I83.893 Ej Abdi 01/01/2018 Wear Daily For 6 Months 20-30MMHG Thigh High Misc Tramadol HCL Take 1 To 2 Unknown 50mg Tablets Tablets By Mouth Every 6 Hours as Needed, Maximum Of 4 Tab Levothyroxine Sodium Unknown 100mcg Tablets Tab-A-Adryan take 1 tablet Unknown Tablets by mouth once daily Chlorthalidone Unknown 25mg Tablets Hydrocodone Bitartrate Unknown Powder Cyclobenzaprine HCL Unknown 10mg Tablets Alprazolam take 1 tablet Unknown 0.25mg Tablets by mouth once daily if needed maximum daily dose of 1 Femring Unknown 0.05mg/24HR Ring Progesterone Micronized take 1 capsule Unknown 100mg by mouth every Capsules evening Immunizations CPT Code Status Date Vaccine Lot # [id number] Given 03/02/2017 Influenza Vaccine [id number] Vital Signs Date Vital Result Comment 03/18/2019 2:59pm Height 68 inches 5'8" Weight 152.00 lb BP Systolic 134 mmHg BP Diastolic 87 mmHg BMI (Body Mass Index) 23.1 kg/m2 Heart Rate 56 /min Respiratory Rate 18 /min Pain Level 0 out of 10 01/21/2019 3:06pm Height 68 inches 5'8" Weight 152.00 lb BP Systolic 100 mmHg BP Diastolic 58 mmHg BMI (Body Mass Index) 23.1 kg/m2 Heart Rate 55 /min Respiratory Rate 18 /min Results Description No Information Available Procedures Date Code Description Status 03/18/2019 11414 Injection Sclerosing Solution Multiple Veins Same Leg Completed 01/21/2019 14664 Injection Sclerosing Solution Multiple Veins Same Leg Completed 01/21/2019 71716 I & D Hematoma Completed 12/10/2018 24314 Injection Sclerosing Solution Multiple Veins Same Leg Completed 11/26/2018 47472 Injection Sclerosing Solution Multiple Veins Same Leg Completed 11/12/2018 45864 Injection Sclerosing Solution Multiple Veins Same Leg Completed 10/15/2018 12839 Injection Sclerosing Solution Multiple Veins Same Leg Completed 10/01/2018 73624 Injection Sclerosing Solution Multiple Veins Same Leg Completed 09/17/2018 91346 Injection Sclerosing Solution Multiple Veins Same Leg Completed Medical Devices Description No Information Available Encounters Description No Information Available Assessments Date Code Description Provider 03/18/2019 I83.891 Varicose veins of right lower extremity with Julisa NITISH Hernández other complicat 03/18/2019 Z68.23 Body mass index (BMI) 23.0-23.9, adult Julisa HernándezNITISH 01/21/2019 I83.893 Varicose veins of bilateral lower extremities Ej Abdi with other com 01/21/2019 L76.32 Postprocedural hematoma of skin and AbdiEj montalvo subcutaneous tissue following other procedure 01/21/2019 Z68.23 Body mass index (BMI) 23.0-23.9, adult Ej Abdi 12/10/2018 I83.891 Varicose veins of right lower extremity with AVA Torres other complicat 12/10/2018 Z68.24 Body mass index (BMI) 24.0-24.9, adult AVA Torres 11/26/2018 I83.892 Varicose veins of left lower extremity with AVA Torres other complicati 11/26/2018 Z68.24 Body mass index (BMI) 24.0-24.9, adult AVA Torres 11/12/2018 I83.891 Varicose veins of right lower extremity with AVA Torres other complicat 10/15/2018 I83.891 Varicose veins of right lower extremity with AVA Torres other complicat 10/15/2018 Z68.24 Body mass index (BMI) 24.0-24.9, adult AVA Torres 10/01/2018 I83.892 Varicose veins of left lower extremity with AVA Torres other complicati 10/01/2018 Z68.24 Body mass index (BMI) 24.0-24.9, adult AVA Torres 09/17/2018 I83.891 Varicose veins of right lower extremity with AVA Torres other complicat 09/17/2018 Z68.24 Body mass index (BMI) 24.0-24.9, adult AVA Torres Plan of Treatment No Information Available Functional Status Description No Information Available Mental Status Description No Information Available Referrals Description No Information Available
--- NOTE | 2019-04-26 17:37 | ED ---
GI/ HPI - HPI Summary HPI Summary: 59-year-old presents with sudden onset of right-sided abdominal pain today. States that lasted for half an hour. States that was very sharp in intensity. Denies any chest pain. States it radiates to her right shoulder. She had a little nausea but no vomiting. No fevers. No urinary symptoms. Does have a history of gas pain states that this was more intense. States she currently has no pain. - History of Current Complaint Chief Complaint: EDAbdPain Time Seen by Provider: 04/26/19 16:18 Stated Complaint: ABD PAIN PER EMS Hx Last Menstrual Period: 02/15/15 Pain Intensity: 0 - Allergy/Home Medications Allergies/Adverse Reactions: Allergies Allergy/AdvReac Type Severity Reaction Status Date / Time latex Allergy Mild Rash Verified 05/21/18 14:02 PMH/Surg Hx/FS Hx/Imm Hx Endocrine/Hematology History: Reports: Hx Thyroid Disease - hypothyrodism Denies: Hx Anticoagulant Therapy, Hx Blood Disorders, Hx Blood Transfusions, Hx Bone Marrow Disease, Hx Diabetes, Hx Systemic Lupus Erythematosus, Hx Sickle Cell Disease, Hx Anemia, Hx Unexplained Bleeding, Other Endocrine/Hematological Disorders Cardiovascular History: Reports: Hx Rheumatic Fever - as a child Denies: Hx Hypertension, Hx Pacemaker/ICD Respiratory History: Denies: Hx Asthma, Hx Chronic Obstructive Pulmonary Disease (COPD) GI History: Reports: Other GI Disorders - gastritis Denies: Hx Ulcer Musculoskeletal History: Reports: Hx Arthritis, Hx Back Problems, Hx Bursitis, Other Musculoskeletal History - neck pain Sensory History: Reports: Hx Cataracts, Hx Contacts or Glasses, Other Sensory Impairments - dentures Denies: Hx Eye Injury, Hx Eye Prosthesis, Hx Glaucoma, Hx Legally Blind, Hx Macular Degeneration, Hx Vision Problem, Hx Deafness, Hx Hearing Aid, Hx Hearing Problem Opthamlomology History: Reports: Hx Cataracts, Hx Contacts or Glasses, Other Sensory Impairments - dentures Denies: Hx Eye Injury, Hx Eye Prosthesis, Hx Glaucoma, Hx Legally Blind, Hx Macular Degeneration, Hx Vision Problem Neurological History: Reports: Hx Migraine Denies: Hx Dementia, Hx Developmental Delay, Hx Headaches, Hx Nerve Disease, Hx Seizures, Hx Spinal Cord Injury, Hx Transient Ischemic Attacks (TIA), Other Neuro Impairments/Disorders - PAIN CLINIC PATIENT Psychiatric History: Reports: Hx Anxiety, Hx Inpatient Treatment - Not in 11 years, Hx Community Mental Health Tx - [facility], Hx Schizophrenia, Hx Substance Abuse - Recent episodes of excessive drinking Denies: Hx Attention Deficit Hyperactivity Disorder, Hx Eating Disorder, Hx Depression, Hx Panic Disorder, Hx Post Traumatic Stress Disorder, Hx Bipolar Disorder, Hx Suicide Attempt, Hx of Violent Episodes Against Others, Other Psychiatric Issues/Disorders - Cancer History Hx Chemotherapy: No Hx Radiation Therapy: No - Surgical History Surgery Procedure, Year, and Place: 2 fx nose. benign cyst left leg Hx Anesthesia Reactions: No - Immunization History Immunizations Up to Date: Yes Infectious Disease History: No Infectious Disease History: Denies: Hx Hepatitis, Hx Human Immunodeficiency Virus (HIV), Hx of Known/ Suspected MRSA, Hx Shingles, Hx Tuberculosis, Hx Known/Suspected VRE, Hx Known/ Suspected VRSA, History Other Infectious Disease, Traveled Outside the [place] in Last 30 Days - Family History Known Family History: Positive: Unknown, Hypertension, Other - thyroid disease Negative: Cardiac Disease, Diabetes - Social History Alcohol Use: Occasionally Alcohol Amount: 1-2 glasses of wine/ week Hx Substance Use: No Substance Use Type: Reports: Prescribed Substance Use Comment - Amount & Last Used: Hydrocodone and tramadol rx'd for chronic migraines and back pain. Smoking Status (MU): Former Smoker Type: Cigarettes Amount Used/How Often: smoked on and off since 15-16 years , 1ppd Have You Smoked in the Last Year: No Review of Systems Negative: Fever Negative: Chest Pain Negative: Shortness Of Breath Positive: Abdominal Pain, Nausea. Negative: Vomiting, Diarrhea All Other Systems Reviewed And Are Negative: Yes Physical Exam Triage Information Reviewed: Yes Vital Signs On Initial Exam: Initial Vitals Temp Pulse Resp BP Pulse Ox 98.7 F 88 18 118/78 99 04/26/19 16:12 04/26/19 16:12 04/26/19 16:12 04/26/19 16:12 04/26/19 16:12 Vital Signs Reviewed: Yes Appearance: Positive: Well-Appearing Skin: Positive: Warm, Dry Head/Face: Positive: Normal Head/Face Inspection Eyes: Positive: Normal, Conjunctiva Clear ENT: Positive: Pharynx normal Respiratory/Lung Sounds: Positive: Clear to Auscultation, Breath Sounds Present Cardiovascular: Positive: Normal, RRR Abdomen Description: Positive: Nontender, Soft Bowel Sounds: Positive: Present Musculoskeletal: Positive: Normal Neurological: Positive: Normal Psychiatric: Positive: Normal Procedures - Sedation Patient Received Moderate/Deep Sedation with Procedure: No Diagnostics - Vital Signs Vital Signs Temp Pulse Resp BP Pulse Ox 04/26/19 16:12 98.7 F 88 18 118/78 99 - Laboratory Lab Results: Lab Results 04/26/19 04/26/19 04/26/19 Range/Units 16:27 16:27 16:27 WBC 3.9 (3.5-10.8) 10^3/uL RBC 4.01 (3.70-4.87) 10^6 /uL Hgb 11.7 L (12.0-16.0) g/dL Hct 35 (35-47) % MCV 86 (80-97) fL MCH 29 (27-31) pg MCHC 34 (31-36) g/dL RDW 14 (10-15) % Plt Count 239 (150-450) 10^3/uL MPV 7.3 L (7.4-10.4) fL Neut % (Auto) 57.4 % Lymph % (Auto) 32.2 % [place] % (Auto) 8.0 % Eos % (Auto) 1.4 % Baso % (Auto) 1.0 % Absolute Neuts (auto) 2.3 (1.5-7.7) 10^3/ul Absolute Lymphs (auto) 1.3 (1.0-4.8) 10^3/ul Absolute Monos (auto) 0.3 (0-0.8) 10^3/ul Absolute Eos (auto) 0.1 (0-0.6) 10^3/ul Absolute Basos (auto) 0.0 (0-0.2) 10^3/ul Absolute Nucleated RBC 0.0 10^3/ul Nucleated RBC % 0.0 Sodium 138 (135-145) mmol/L Potassium 3.3 L (3.5-5.0) mmol/L Chloride 100 L (101-111) mmol/L Carbon Dioxide 33 H (22-32) mmol/L Anion Gap 5 (2-11) mmol/L BUN 13 (6-24) mg/dL Creatinine 0.84 (0.51-0.95) mg/dL Est GFR ( Amer) 84.3 (>60) Est GFR (Non-Af Amer) 69.6 (>60) BUN/Creatinine Ratio 15.5 (8-20) Glucose 97 (70-100) mg/dL Lactic Acid 0.3 L (0.5-2.0) mmol/L Calcium 9.3 (8.6-10.3) mg/dL Magnesium 1.9 (1.9-2.7) mg/dL Total Bilirubin 0.30 (0.2-1.0) mg/dL AST 27 (13-39) U/L ALT 28 (7-52) U/L Alkaline Phosphatase 56 (34-104) U/L Troponin I 0.00 (<0.03) ng/mL C-Reactive Protein < 1.00 (<8.01) mg/L Total Protein 7.1 (6.4-8.9) g/dL Albumin 4.1 (3.2-5.2) g/dL Globulin 3.0 (2-4) g/dL Albumin/Globulin Ratio 1.4 (1-3) Lipase 16 (11.0-82.0) U/L Result Diagrams: 04/26/19 16:27 04/26/19 16:27 Lab Statement: Any lab studies that have been ordered have been reviewed, and results considered in the medical decision making process. - EKG No standard instances Cardiac Rate: NL EKG Rhythm: Sinus Rhythm EKG Comparison: No Significant Change Summary of EKG Findings: sinus rhythm, PACs Re-Evaluation - Re-Evaluation First Eval Re-Evaluation Time: 17:50 Comment: still nontender GIGU Course/Dx - Course Course Of Treatment: 59-year-old presents with sudden onset of right-sided abdominal pain today. States that lasted for half an hour. States that was very sharp in intensity. Denies any chest pain. States it radiates to her right shoulder. She had a little nausea but no vomiting. No fevers. No urinary symptoms. Does have a history of gas pain states that this was more intense. States she currently has no pain. On exam nontender abdomen. wbc normal. CRP normal. EKG shows sinus rhythm. did not get imaging at this time as has no pain. Will discharge to have follow-up with primary. Warned symptoms to return for. Patient understands and agrees with plan. - Diagnoses Differential Diagnoses - Female: Gall Bladder Disease, Gastritis, Gastroenteritis (Viral) Provider Diagnoses: Abdominal pain Discharge ED - Sign-Out/Discharge Documenting (check all that apply): Patient Departure - Discharge Plan Condition: Good Disposition: HOME Patient Education Materials: Acute Abdominal Pain (ED) Referrals: Erin Harrell MD [Primary Care Provider] - Additional Instructions: take tyenlol every 6 hours for pain Increase fiber follow up with primary within 5 days Return to ED if develop any new or worsening symptoms - Billing Disposition and Condition Condition: GOOD Disposition: Home
[2019-04-26 17:44] LABS: Urine Appearance Clear; Urine Bilirubin Negative (Negative); Urine Blood Negative (Negative); Urine Color Yellow; Urine Glucose Negative (Negative); Urine Ketones Negative (Negative); Urine Nitrite Negative (Negative); Urine Protein Negative (Negative); Urine Specific Gravity 1.014 (1.010-1.030); Urine Urobilinogen Negative (Negative)
[2019-04-26] MEDS ORDERED: Potassium Chlor TAB* 20 MEQ TAB.ER PO ONE (17:45)
[2019-04-26 17:55] VITALS: BP 128/71
== END 2019-04-26 17:54 | disposition home or self-care (01) ==
LOC: ED 16:10
DX: R10.9 Unspecified abdominal pain (principal); E03.9 Hypothyroidism, unspecified; G43.909 Migraine, unspecified, not intractable, without status migrainosus; Z79.899 Other long term (current) drug therapy; Z87.891 Personal history of nicotine dependence
CPT/HCPCS: 36415; 80053; 81003; 83605; 83690; 83735; 84484; 85025; 86140; 93005; 99282